=== PATIENT | female | born 1955 | race Caucasian/White ===

== ENCOUNTER 2023-11-12 15:49 | Inpatient (IN) | payer OTHER, SELFPAY ==
[2023-11-12] VITALS (41 sets, daily range): BP systolic 106–170; BP diastolic 61–105
[2023-11-12 15:12] LABS: Glucose - Point of Care 201 mg/dl (70-99)
--- NOTE | 2023-11-12 15:12 | ED.GENMED ---
History of Present Illness
General
Chief Complaint: Weakness
Source: patient and ambulance crew
Exam Limitations: none
Time Seen by Provider: 11/12/23 15:08
History of Present Illness
History of Present Illness:
See MDM
If applicable-neuro sx onset
Onset of symptoms known: Yes
Date of onset of symptoms: 11/12/23
Past History
Past History
ED Past Medical History: Asthma, HTN, NIDDM and Other (Diabetes, chronic pain from degenerative disease in her back, has pain medication at home, hypertension)
ED Past Surgical History: and Gynecological
Social History
Tobacco: Smoker
Alcohol: None
Drug: Marijuana (vape)
Living: with roommate
Family History
Family History: Other (Mother with Alzheimer's)
Phy Exam
Physical Exam
Physical Exam:
See MDM
Scores
NIH Stroke Score
Level of Consciousness: 0 - Alert
LOC Questions: 0-Answers both correctly
LOC Commands: 0-Performs both correctly
Best Horizontal Gaze: 0-Normal
Visual Concepcion: 0=Normal, no visual loss
Facial Palsy: 0=Normal, symmetrical
Motor - Right Arm: 0=No drift 10 seconds
Motor - Left Arm: 0=No drift 10 seconds
Motor - Right Le-No drift 5 seconds
Motor - Left Le-No drift 5 seconds
Limb Ataxia: 0-Absent
Sensation: 2-Severe loss
Best Language: 1-Mild aphasia
Dysarthria: 0-Normal
Extinction and Inattention: 0-No abnormality
Total Score:: 3
MRS Score
Modified Alva Scale (mRS): No significant disability. Able to carry out usual activities.
Score: 1
Course
Orders/Labs/Results
Orders:
Orders
11/12/23 15:08
Electrocardiogram (*1) Stat
Reason for Study: Other
Other Reason for Exam: neuro symptoms
CT Head & Neck Angio W/wo IV Urgent
Comment:
Reason For Exam: Expressive aphasia
NEUROLOGY CONSULT Urgent
Consulting Provider: Sidra Stevenson
Was physician already notified: Yes
Bedside Glucose- Treatment ONCE
Cardiac Monitoring- Treatment ONCE
EKG- Treatment ONCE
11/12/23 15:09
CT Head W/o Cont STROKE ALERT Stat
Comment:
Reason For Exam: weakness
11/12/23 15:12
Complete Blood Count/With Diff Urgent
Comprehensive Metabolic Panel Urgent
PTT Urgent
Prothrombin Time Urgent
Troponin I Urgent
11/12/23 15:18
Tenecteplase [Tnkase] 21 mg Syringe [Syringe Non-Pump] 0 ml IV NOW
Provider explained risk/benefits to patient &/or caregiver?: Yes
11/12/23 15:28
Admit/Transfer Patient As Directed
Co-Sign Provider:
Level of Care: Inpatient admission
Assign to:: ICU
Physician / Group: Carmelina
Diagnosis: Acute stroke
Reason for Hospitalization: stroke
Expected length of stay greater than two midnights?: Yes
ELOS- Estimated Length of Stay in days: 3
I certify the patient meets the requirements for IP care: Yes
11/12/23 15:29
Code Status As Directed
Resuscitation Status: Full Code
Abnormal Lab Results
11/12/23 11/12/23
15:09 15:12
Abs Immat Gran (auto) 0.1 H 10^3/uL
(0-0.05)
Absolute Neuts (auto) 7.3 H 10^3/uL
(1.4-6.5)
Absolute Monos (auto) 0.7 H 10^3/uL
(0.1-0.6)
BUN 42 H mg/dl
(7-17)
Creatinine 1.3 H mg/dL
(0.6-1.0)
Glucose 150 H mg/dl
(70-99)
AST 38 H U/L
(14-36)
Total Protein 9.0 H g/dl
(6.3-8.2)
Albumin 5.3 H g/dl
(3.5-5.0)
POC Glucose 201 H mg/dl
(70-99)
11/12/23 15:12
11/12/23 15:12
Vital Signs
Initial and Last Documented VS:
Initial Vital Signs
Temp Pulse Resp BP Pulse Ox
99.0 F 99 18 151/71 98
11/12/23 15:31 11/12/23 15:31 11/12/23 15:31 11/12/23 15:31 11/12/23 15:31
Last Documented Vital Signs
Temp Pulse Resp BP Pulse Ox
99.0 F 81 12 151/71 98
11/12/23 15:31 11/12/23 15:40 11/12/23 15:40 11/12/23 15:40 11/12/23 15:31
MDM/Problems Addressed
Differential Diagnosis Includes:
HPI and MDM Narrative:
68-year-old female presenting with expressive aphasia and tingling of her right arm. This occurred around 2 PM today. Patient believes symptoms are improving somewhat but she still has expressive aphasia and has significant sensory loss to right
arm. Prearrival stroke alert called by EMS. On arrival, patient was quickly evaluated by myself and neurology and sent to CT scanner.
Physical exam
General: Well appearing and non-toxic
HEENT: protecting airway. Pupils equal reactive. EOMI
Neck: appears supple
CV: No evidence of cyanosis
Resp: No accessory muscle use
Abd: Non-distended
Extremities: No deformities
Neuro: alert. Significant sensory deficit to right arm. Muscle strength intact all 4 extremities. Mild expressive aphasia
Psych: Normal affect
Skin: Intact
Problems Addressed including Acute and Chronic Conditions affecting care:
1. Strokelike symptoms
Acuity: acute
Prognosis: unstable
Details: Given the expressive aphasia and unilateral arm tingling, stroke alert called and patient sent immediately to CT scanner
Updates
3:15 PM Neurology spoke to patient and the onset of timing may be closer to 1 PM. Regardless, patient still in the TNK timeframe. Neurology will order TNK.
Radiology discussed no acute findings on Noncon CT
Differential Diagnosis (but not limited to): Brain mass, ischemic stroke, hemorrhagic stroke
Testing considered: CT perfusion
Drug therapy (if applicable): OTC meds, please see d/c instruction regarding Rx drugs
Amount and/or Complexity of Data Reviewed
Clinical info obtained from: Patient
External data reviewed: N/A
Labs I independently reviewed (but not limited to): Platelets within normal limits
Radiology: The CT scan was personally and independently reviewed. In addition, official CT report reviewed.
Pulse Ox: not hypoxic
EKG independently reviewed: Sinus rhythm, normal axis, no STEMI
Hydro Sprayer Operator: Sinus rhythm
Critical Care: The high probability of a clinically significant, sudden or life threatening deterioration of the neurovascular system(s) required my full and direct attention, intervention and personal management. The aggregate critical care time
was 33 minutes. This time is in addition to time spent performing reported procedures but includes the following:
[x] Data Review and interpretation
[x] Patient assessment and monitoring of vital signs
[x] Documentation
[x] Medication orders and management
Risk of Complication:
Social Determinants of health: Good social support
Discussed with other providers: Neurologist, radiologist, hospitalist
Escalation of Care includes Admit/Obs: Given the concern for ischemic stroke, patient given TNK and will admit to the ICU
Occasional wrong word or 'sound a like' substitutions may have occurred due to the inherent limitations of voice recognition software. Read the chart carefully and recognize, using context, where substitutions have occurred.
*Critical Care Note
Total Time (30-74mins, 75-104mins- exclusive of procedures): 33 min
ED Attending Note
-
Portions of this chart may have been created with voice recognition software.� Occasional wrong word or��sound alike� substitutions may have occurred due to the inherent limitations of voice recognition software.
Discharge Plan
Departure
Patient Disposition: Admit
Date of Disposition: 11/12/23
Time of Disposition: 15:40
Admit to: ICU
Presentation/result/management discussed w/ accepting MD/DO: Hospitalist
Discharge Problem:
Acute CVA (cerebrovascular accident)
Interventions
Interventions:
*Risk Screen - Suicide Last Done: 11/12/23 15:49
*General Assessment Last Done: 11/12/23 15:49
*Neglect/Abuse Screening Last Done: 11/12/23 15:49
*ED COVID-19 Vaccine History Last Done: 11/12/23 15:33
--- NOTE | 2023-11-12 15:17 | CON.NEURO ---
Consultation
Order
Date of Consultation: 11/12/23
Requesting Provider:
Reason for Consult: Stroke alert
CC:
HPI: This is a 69-year-old right-handed woman who presented to [facility] on November 12, 2023 with language dysfunction. According to the patient she developed expressive difficulties around 1:00 today. No reports of headache, fever
motor, sensory or visual deficits, history of seizures or similar episodes in the
ER VS: 151/71, 99, 37.2C
PDMP:Hydrocodone-Acetamin 10-325 Mg 150 tabs Morphine Sulf Er 15 Mg�60 tabs filled in on 10/17/2023.
Labs:Pl 281
CT head-moderate periventricular hypodensities left insular cortex calcification.
CTA head/neck-neck no significant intra or extra cranial stenosis or dissection.
PMH: LS DJD, HTN, nicotine addiction; chronic lower back pain,
PSH: , bilateral cataract surgery
SH: Active smoker, admits to recreational marijuana use, independent in ADL
FH: No family history of stroke
All:NKDA
ROS: Positive for expressive aphasia.
General: Well developed. In no acute distress.
Cardio: Regular rate and rhythm without murmur. Extremities are without cyanosis or edema.
Neuro:
Mental Status: Alert, follows simple requests. Moderate expressive aphasia
Cranial Nerves: . Pupils are equally round and reactive to light. EOMs full. Visual lorenzana full to confrontation. No ptosis. No nystagmus. Face symmetric. Normal hearing AU. The palate elevated well. SCMs and traps 5/5. Tongue midline. No
dysarthria.
Motor: Normal bulk and tone. No pronator or arm drift. Strength 5/5 throughout. No clonus.
Coordination: No dysmetria
Gait: deferred
Assessment and Plan:
I Acute L MCA territory syndrome.
II. Nicotine addiction
III. HTN
-Admit to ICU;
-STAT IV Tenecteplase 25 mg/kg once. TNK has similar efficacy and safety outcomes compared with alteplase including rates of excellent functional outcome, symptomatic intracerebral hemorrhage, and mortality at 90 days.
-Neuro checks while in the ED - Q15 minutes.
-Maintain euvolemia using 0.9% NaCl.
-Strictly follow I�s & O�s.
-Avoid antihypertensive medications unless MAP is persistently higher than 130
-Treat persistently elevated MAP>130 with IV Labetalol.
-NPO, especially if the level of arousal is depressed.
-NGT after the 2nd day for nutrition and meds if dysarthria or dysphagia present;
-Maintain elevation of HOB 30-45 degrees.
- Utilize a pneumatic compression device for DVT prophylaxis.
- For anticoagulation-related hemorrhage: aggressive reversal using FFP
-No antiplatelet agents nor anticoagulants, including heparin, low molecular weight heparin, heparinoids, warfarin, ASA and other antiplatelet agents, and NSAIDs;
-Monitoring of vital signs and neurologic status should be performed every hour.
-For any worsening of neurologic condition:
a. STAT head CT
b. STAT neurologic consult for evaluation
c. STAT Neurosurgical consult for evaluation
-MRI brain wo chana
-TTE
-The case was discussed with patient's daughter
-SCD/TEDs;
I personally reviewed all radiology and labs along with past medical records pertinent to current medical problems. Total time spent in patient care is 60 minutes.
Thank you for allowing us to participate in the care of this patient. We will continue to follow. Please do not hesitate to contact us with any questions or concerns.
Subjective/Objective
Subjective Data
Date of Service: November 12, 2023
Objective Data
Patient Allergies
No Known Allergies Allergy (Verified 03/24/23 08:31)
Medications
-
Home Medications
Medication Instructions Recorded
acetaminophen 325 mg tablet 650 mg PO Q4HWA #120 tabs 08/24/20
alprazolam 0.5 mg tablet 0.5 mg PO BID #15 tabs 08/24/20
aspirin 325 mg tablet 325 mg PO DAILY #30 tabs 08/24/20
docusate sodium 100 mg capsule 100 mg PO BID #60 caps 08/24/20
ergocalciferol (vitamin D2) 1,250 50,000 units PO Q7D #4 caps 08/24/20
mcg (50,000 unit) capsule
gabapentin 300 mg capsule 900 mg PO HS #30 caps 08/24/20
lidocaine 4 % topical patch 3 patch topical DAILY #60 patches 08/24/20
(Aspercreme (lidocaine))
metformin 500 mg tablet,extended 500 mg PO HS #30 tabs 08/24/20
release 24 hr
nicotine 14 mg/24 hr daily 14 mg transdermal DAILY #30 patches 08/24/20
transdermal patch
oxycodone 15 mg tablet 15 mg PO Q4HPRN PRN pain #40 tabs 08/24/20
sennosides 8.6 mg tablet (senna) 2 tab PO BID #60 tabs 08/24/20
sertraline 25 mg tablet 25 mg PO DAILY #30 tabs 08/24/20
bumetanide 1 mg tablet 1 mg PO BID #60 tabs 08/25/20
methylprednisolone 4 mg tablets in 4 mg PO DAILY #21 ea 12/05/22
a dose pack (Medrol (Justus))
Vital Signs and Labs
-
Vital Signs and Labs:
Vital Signs
Temp Pulse Resp BP Pulse Ox
37.2 C 86 8 133/66 94
11/12/23 15:31 11/12/23 16:10 11/12/23 16:10 11/12/23 16:10 11/12/23 15:55
Lab Results
11/12/23 15:55
11/12/23 15:55
PT 13.2 Sec (11.4-14.6) 11/12/23 15:12
INR 1.01 11/12/23 15:12
APTT 33.1 Sec (23.4-35.0) 11/12/23 15:12
Sodium 133 mmol/L (135-145) L 11/12/23 15:55
Potassium 4.1 mmol/L (3.5-5.1) 11/12/23 15:55
BUN 44 mg/dl (7-17) H 11/12/23 15:55
Glucose 141 mg/dl (70-99) H 11/12/23 15:55
Calcium 9.2 mg/dl (8.4-10.2) 11/12/23 15:55
Home Medications
-
Home Medications
alprazolam 0.5 mg tablet 0.5 mg PO Q6H PRN anxiety 11/12/23
duloxetine 60 mg capsule,delayed release 60 mg PO BID depression/pain 11/12/23
gabapentin 400 mg capsule 400 mg PO QID pain/neuropathy 11/12/23
hydrocodone 10 mg-acetaminophen 325 mg tablet 1 tab PO Q4H PRN moderate pain 11/12/23
metformin 500 mg tablet,extended release 24 hr 500 mg PO BID diabetes 11/12/23
morphine 15 mg tablet,extended release 15 mg PO Q12H PRN severe pain 11/12/23
[2023-11-12 15:29] LABS: % Basophils 0.6 % (0-2); % Eosinophils 1.5 % (0-6); % Immature Granulocytes 0.5 % (0-0.5); % Lymphocytes 22.8 % (20.5-51.1); % Monocytes 6.8 % (1.7-9.3); % Neutrophils 67.8 % (42.2-75.2); Absolute Basophils 0.1 10^3/uL (0-0.2); Absolute Eosinophils 0.2 10^3/uL (0-0.7); Absolute Immature Granulocytes 0.1 10^3/uL (0-0.05); Absolute Lymphocytes 2.4 10^3/uL (1.2-3.4); Absolute Monocytes 0.7 10^3/uL (0.1-0.6); Absolute Neutrophils 7.3 10^3/uL (1.4-6.5); Hemoglobin 14.5 g/dL (12.0-16.0); Mean Corp Hgb Conc. 33.7 g/dL (33.0-37.0); Mean Corpuscular Hgb 28.5 pg (27.0-31.0); Mean Corpuscular Volume 84.6 fL (81.0-99.0); Mean Platelet Volume 9.5 fL (7.4-10.4); Nucleated Red Blood Cells % 0 %; Platelet Count 326 10^3/uL (130-400); Red Blood Cell Count 5.08 10^6/uL (4.20-5.40); Red Cell Dist. Width 13.2 % (11.5-14.5); White Blood Cell Count 10.7 10^3/uL (4.8-10.8)
--- NOTE | 2023-11-12 15:30 | CON.INTV ---
Consultation
Consultation Request
Date/Time Consultation Requested: 11/12/2023-3:30 PM
Date/Time Consultation Performed: 11/12/2023-3:45 PM
Requesting Provider: Hospitalist
Performing Provider: Dr. Scott
Reason for Consultation: Status post TNK
Medical History
-
Chief Complaint: CVA
History of Present Illness:
68-year-old female smoker and marijuana vaper with a history of hypertension, asthma, diabetes, chronic pain presented with weakness and expressive aphasia with tingling in right arm felt to have CVA and received TNK-torch straightener consulted for post
TNK/critical care management 11/12/2023. Patient is seen up in the ICU. Patient is alert and oriented. Continues to complain of some expressive aphasia but no weakness, dysphagia, visual or sensory abnormalities. She denies any shortness of
breath, chest pain, chest tightness, wheezing, mucus, abdominal pain, nausea or leg swelling. She continues to smoke a pack of cigarettes daily. She continues to vape marijuana.
Past Medical History
Past Medical History: None (Hypertension-multidrug. Asthma. Diabetes with neuropathy. Smoker. Chronic pain. Vitamin D deficiency. Orthopedic surgery-right femur fracture. Cataract.)
Social History
Tobacco: Smoker ( 1 to 2 packs a day)
Drug: Marijuana (vape)
Personal: Partner
Living: With Family
Occupational Exposures: No known asbestos exposure
Environmental Exposures: No known tuberculosis exposure
Family History
Family History: Other (Mother-dementia.)
Allergies / Home Medications
Allergies
Allergy/AdvReac Type Severity Reaction Status Date / Time
No Known Allergies Allergy Verified 03/24/23 08:31
Home Medications
Medication Instructions Recorded Confirmed Last Taken Type
acetaminophen 325 mg tablet 650 mg PO Q4HWA #120 tabs 08/24/20 Unknown Rx
alprazolam 0.5 mg tablet 0.5 mg PO BID #15 tabs 08/24/20 Unknown Rx
aspirin 325 mg tablet 325 mg PO DAILY #30 tabs 08/24/20 Unknown Rx
docusate sodium 100 mg capsule 100 mg PO BID #60 caps 08/24/20 Unknown Rx
ergocalciferol (vitamin D2) 1,250 50,000 units PO Q7D #4 caps 08/24/20 Unknown Rx
mcg (50,000 unit) capsule
gabapentin 300 mg capsule 900 mg PO HS #30 caps 08/24/20 Unknown Rx
lidocaine 4 % topical patch 3 patch topical DAILY #60 patches 08/24/20 Unknown Rx
(Aspercreme (lidocaine))
metformin 500 mg tablet,extended 500 mg PO HS #30 tabs 08/24/20 Unknown Rx
release 24 hr
nicotine 14 mg/24 hr daily 14 mg transdermal DAILY #30 patches 08/24/20 Unknown Rx
transdermal patch
oxycodone 15 mg tablet 15 mg PO Q4HPRN PRN pain #40 tabs 08/24/20 Unknown Rx
sennosides 8.6 mg tablet (senna) 2 tab PO BID #60 tabs 08/24/20 Unknown Rx
sertraline 25 mg tablet 25 mg PO DAILY #30 tabs 08/24/20 Unknown Rx
bumetanide 1 mg tablet 1 mg PO BID #60 tabs 08/25/20 Unknown Rx
methylprednisolone 4 mg tablets in 4 mg PO DAILY #21 ea 12/05/22 Unknown Rx
a dose pack (Medrol (Justus))
Review of Systems
-
Unable to Obtain full review of systems at this time due to: Other (Per HPI)
Vitals / Labs / Diagnostic Testing
Diagnostic Testing:
Physical Exam
-
Exam:
Well-nourished and well-developed in no apparent distress
HEENT-atraumatic, normocephalic
Neck-supple, no JVD, no bruit
Heart-regular rate and rhythm-no murmurs, rubs or gallops
Chest-clear to auscultation, no wheezes, crackles
Back-no tenderness
Abdomen-soft, nontender, nondistended, no hepatosplenomegaly
Extremities-no cyanosis, clubbing, edema and good peripheral pulses
Integument-intact, no rashes, lesions or ecchymosis
Neurology-alert and oriented, nonfocal motor and sensory exam
Assessment
-
68-year-old female smoker and marijuana vaper with a history of hypertension, asthma, diabetes, chronic pain presented with weakness and expressive aphasia with tingling in right arm felt to have CVA and received TNK-torch straightener consulted for post
TNK/critical care management 11/12/2023.
Assessment
Acute CVA-expressive aphasia
status post TNK
MAURICIO
Hyperglycemia
Obesity-BMI 30
Conditions present prior to admission:
Hypertension-multidrug.
Asthma.
Diabetes with neuropathy.
Smoker.
Chronic pain.
Vitamin D deficiency.
Orthopedic surgery-right femur fracture. Cataract. .
Plan
Admit patient to medical intensive care unit
Supplemental oxygen to maintain saturation greater than 92%
Aspiration precautions
Neurology evaluation
Monitor blood pressure closely-goal SBP < 180, DBP < 105
Neuro checks per protocol
Check CT head
MRI head/MRA head and neck in next 24 hours
Hold antiplatelet therapy �24 hours
Check lipid panel
Check echocardiogram
Check A1c
Carotid circulation evaluation
Atorvostatin 80 mg daily if tolerated
Monitor blood sugar-insulin as needed-goal blood sugar 140-180
DVT prophylaxis-sequential for 24 hours and then Lovenox
Speech therapy/occupational therapy/physical therapy evaluation
Smoking cessation counseling ongoing.
Screen for sleep apnea-denies snoring, feels refreshed in the morning does not complain of daytime somnolence
Critical care statement: A total of 50 minutes of critical care time was provided for this patient today. This includes management of unstable vital signs, evaluation of the patient at bedside, reviewing the patient's pertinent medical records
including radiographs, microbiology, laboratory evaluations, and discussion with primary team, consultants, pharmacy, nutrition, physical therapy, case management, charge nurse, critical care nursing, and respiratory therapy.
Diagnostic data:
Chest x-ray 03/26/2021-abnormal
CT head 11/12/23-3 mm focus of dystrophic calcification within the posterior left insular cortex, no evidence for acute intracranial abnormalities
CT head neck angiogram 11/12/2023-moderate bilateral calcific atherosclerotic disease in the proximal internal carotid arteries, normal appearance of the vertebral and basilar arteries, bilobed nodule arising from the thyroid isthmus
Data Reviewed
-
EKG: Report reviewed by me
Radiology: Report reviewed by me
CT Scan: Report reviewed by me
Medical Tests (Nuc Med, Echo etc): Report reviewed by me
Labs: Labs reviewed by me
Old Records: Reviewed
Critical Care Time (in minutes): 50
--- NOTE | 2023-11-12 15:37 | HPS.HSE ---
Family Physician
-
Family Physician:
Chief Complaint
-
Expressive aphasia, right arm tingling
History of Present Illness
68 with acute onset of expressive aphasia and right-sided paresthesias around 1 to 2 PM.
Stroke alert called and neurology at bedside in the emergency room. Decision made to administer thrombolysis.
Medical History
Past Medical History
Past Medical History: Reports Other
Additional Past Medical History:
Essential hypertension
DM2
Diabetic peripheral neuropathy
Mild intermittent asthma
Chronic pain syndrome
Chronic opiate dependence
Mixed hyperlipidemia
Major depression
Anxiety disorder
Osteoporosis
Past Surgical History: Reports Gynocological and Orthopedic
Social History
Tobacco: Smoker
Alcohol: None
Drug: Marijuana
Family History
Family History: Not pertinent
Allergies / Home Medications
Allergies reflects when Allergies were last updated in [facility].
Home Medications with original date entered in [facility]
Allergy/Medication List:
Allergies
Allergy/AdvReac Type Severity Reaction Status Date / Time
No Known Allergies Allergy Verified 03/24/23 08:31
Home Medications
bumetanide 1 mg tablet 1 mg PO BID #60 tabs 08/25/20
alprazolam 0.5 mg tablet 0.5 mg PO Q6H PRN anxiety 11/12/23
duloxetine 60 mg capsule,delayed release 60 mg PO BID 11/12/23
gabapentin 400 mg capsule 400 mg PO QID 11/12/23
hydrocodone 10 mg-acetaminophen 325 mg tablet 1 tab PO Q4H PRN moderate pain 11/12/23
metformin 500 mg tablet,extended release 24 hr 500 mg PO BID 11/12/23
morphine 15 mg tablet,extended release 15 mg PO Q12H PRN severe pain 11/12/23
Review of Systems
-
History Source: Patient
A 12 point ROS was completed and negative except as noted: Yes
Neurological: Reports Headache and Numbness (Right arm, expressive aphasia)
Physical Exam
Vital Signs
Vital Signs
Temp Pulse Resp BP Pulse Ox
99.0 F 99 18 151/71 98
11/12/23 15:31 11/12/23 15:31 11/12/23 15:31 11/12/23 15:31 11/12/23 15:31
Physical Exam
General: Well Developed, Well Nourished, No Apparent Distress and Comfortable
HEENT: NormoCephalic and Anicteric
Respiratory: Clear
Cardiac: S1/S2 and Regular Rhythm
Breast: Deferred by me
GI: Soft, Non Tender and Non Distended
Genito-urinary: Deferred by me
Musculoskeletal: No Clubbing, No Cyanosis and No Edema
Skin: Warm and Dry
Neuro: Awake, Alert, Nonfocal/grossly intact and Other (Expressive aphasia)
Hematologic/Lymphatic: No Lymphadenopathy
Psych: Calm
Laboratory Results
-
11/12/23 15:12
Impression/Plan
-
Acute expressive aphasia -possible stroke. CT head negative. CTA completed, report pending. Neurology consulted for stroke alert. Neurology deciding on thrombolysis. Awaiting platelet count. Admit to ICU. Continue neurologic checks. Brain
MRI tomorrow. Hold antiplatelet agents for 24 hours.
DM2 without hyperglycemia -check hemoglobin A1c. She is on metformin at home. Use low resistance NovoLog scale.
Renal insufficiency -unclear if acute versus chronic. Creatinine 1.3. I checked ECW and I do not see any recent blood work, most recent was from 2019.
Diabetic peripheral neuropathy
Essential hypertension -permissive hypertension for 24 hours. Does not appear to be on antihypertensives at home.
Mild intermittent asthma -stable.
Chronic pain syndrome/chronic opiate dependence -she sees pain management Dr. Heck. She is on scheduled morphine 15 mg every 12 hours, hydrocodone 10/325 every 4 as needed pain.
Tobacco dependence -abstinence is important.
Obesity due to excess calories
Full code
PT/OT/speech consult
Updated family at the bedside. Case discussed with ER attending as well as neurologist.
[2023-11-12] MEDS: TNKASE 4.20000000000000018 MG IV (15:38)
[2023-11-12 15:39] LABS: APTT 33.1 Sec (23.4-35.0); INR 1.01; PT 13.2 Sec (11.4-14.6)
[2023-11-12 15:53] LABS: ALT (SGPT) 33 U/L (0-35); AST (SGOT) 38 U/L (14-36); Albumin 5.3 g/dl (3.5-5.0); Alkaline Phosphatase 107 U/L (38-126); Blood Urea Nitrogen 42 mg/dl (7-17); Calcium 9.6 mg/dl (8.4-10.2); Carbon Dioxide 22 mmol/L (22-30); Chloride 99 mmol/L (98-107); Glucose 150 mg/dl (70-99); Potassium 4.5 mmol/L (3.5-5.1); Sodium 135 mmol/L (135-145); Total Bilirubin 0.8 mg/dl (0.2-1.3); eGFR 44.79
[2023-11-12 16:02] LABS: % Basophils 0.5 % (0-2); % Eosinophils 1.5 % (0-6); % Immature Granulocytes 0.4 % (0-0.5); % Lymphocytes 16.5 % (20.5-51.1); % Monocytes 7.8 % (1.7-9.3); % Neutrophils 73.3 % (42.2-75.2); Absolute Basophils 0.1 10^3/uL (0-0.2); Absolute Eosinophils 0.1 10^3/uL (0-0.7); Absolute Lymphocytes 1.6 10^3/uL (1.2-3.4); Absolute Monocytes 0.8 10^3/uL (0.1-0.6); Absolute Neutrophils 7.1 10^3/uL (1.4-6.5); Hematocrit 36.5 % (37.0-47.0); Hemoglobin 12.7 g/dL (12.0-16.0); Mean Corp Hgb Conc. 34.8 g/dL (33.0-37.0); Mean Corpuscular Hgb 28.7 pg (27.0-31.0); Mean Corpuscular Volume 82.6 fL (81.0-99.0); Mean Platelet Volume 8.8 fL (7.4-10.4); Nucleated Red Blood Cells % 0 %; Platelet Count 281 10^3/uL (130-400); Red Blood Cell Count 4.42 10^6/uL (4.20-5.40); Red Cell Dist. Width 13.2 % (11.5-14.5); White Blood Cell Count 9.6 10^3/uL (4.8-10.8)
[2023-11-12 16:08] LABS: Troponin I 0.102 ng/ml
[2023-11-12 16:19] LABS: ALT (SGPT) 25 U/L (0-35); AST (SGOT) 23 U/L (14-36); Albumin 4.4 g/dl (3.5-5.0); Alkaline Phosphatase 100 U/L (38-126); Blood Urea Nitrogen 44 mg/dl (7-17); Calcium 9.2 mg/dl (8.4-10.2); Carbon Dioxide 27 mmol/L (22-30); Chloride 95 mmol/L (98-107); Glucose 141 mg/dl (70-99); Potassium 4.1 mmol/L (3.5-5.1); Sodium 133 mmol/L (135-145); Total Bilirubin 0.5 mg/dl (0.2-1.3); Total Protein 7.5 g/dl (6.3-8.2); eGFR 44.79
[2023-11-12 17:41] LABS: Glucose - Point of Care 121 mg/dl (70-99)
[2023-11-12] MEDS: NEURONTIN 400 MG PO ×2 (17:46→21:11)
[2023-11-12] MEDS: XANAX 0.5 MG PO (17:46)
[2023-11-12] MEDS: NICODERM TRANSDERMAL 21 MG TRANSDERM (18:36)
--- NOTE | 2023-11-12 18:38 | PTCARENOTE ---
Received pt from ED. NIHSS 3 with visual field losses, right sided sensation loss, and aphasia. Expressive aphasia definite, receptive aphasia mild if present. Pt anxious and agitated. HTN noted. Sinus rhythm. 93% on RA. Able to stand and pivot to
bed and bedside commode. Voided without issue. Xanax given as requested by pt and family. Plan of care discussed. Stroke booklet given.
[2023-11-12] MEDS: MS CONTIN (EXTENDED RELEASE) 15 MG PO (19:38)
[2023-11-12] MEDS: CYMBALTA DELAYED RELEASE 60 MG PO (19:39)
--- NOTE | 2023-11-12 20:00 | PTCARENOTE ---
Received patient in bed, AAOx3, following commands. Expressive aphasia present, decreased sensation on right upper extremity noted, visual field losses present, NIHSS 3. Normal sinus, 70s. Hypertensive, 140s-150s/70s-80s. Palpable radial and pedal
pulses bilaterally, no edema, SCDs on. Normothermic. On 2 liters nasal cannula, saturating 94%. Lung sounds diminished throughout. 200 calorie diabetic diet, ate 80% of dinner. Bedside commode to void. Skin intact. LAC and RFA PIV patent, WNL.
at bedside.
[2023-11-12] MEDS: NORCO 7.5/325 1 TABLET PO (21:10)
[2023-11-12 21:37] LABS: Troponin I 0.086 ng/ml
[2023-11-12 23:59] LABS: Glucose - Point of Care 129 mg/dl (70-99)
[2023-11-13] VITALS (33 sets, daily range): BP systolic 132–157; BP diastolic 61–108
--- NOTE | 2023-11-13 00:09 | PTCARENOTE ---
Patient reports sensation feeling the same on both sides when arms, legs, and cheeks touched. PRN pain medicine given, see MAR. Blood sugar 129. Otherwise patient assessment unchanged from previous.
--- NOTE | 2023-11-13 04:15 | PTCARENOTE ---
Patient assessment unchanged from previous, resting comfortably, call lenz within reach.
[2023-11-13 04:21] LABS: Hematocrit 35.7 % (37.0-47.0); Hemoglobin 12.1 g/dL (12.0-16.0); Mean Corp Hgb Conc. 33.9 g/dL (33.0-37.0); Mean Corpuscular Hgb 28.3 pg (27.0-31.0); Mean Corpuscular Volume 83.6 fL (81.0-99.0); Mean Platelet Volume 8.9 fL (7.4-10.4); Platelet Count 256 10^3/uL (130-400); Red Blood Cell Count 4.27 10^6/uL (4.20-5.40); Red Cell Dist. Width 13.2 % (11.5-14.5); White Blood Cell Count 8.5 10^3/uL (4.8-10.8)
[2023-11-13 04:31] LABS: INR 1.11; PT 14.1 Sec (11.4-14.6)
[2023-11-13 04:32] LABS: APTT 31.9 Sec (23.4-35.0)
[2023-11-13 05:05] LABS: ALT (SGPT) 24 U/L (0-35); AST (SGOT) 26 U/L (14-36); Albumin 3.9 g/dl (3.5-5.0); Alkaline Phosphatase 74 U/L (38-126); Blood Urea Nitrogen 37 mg/dl (7-17); Calcium 8.9 mg/dl (8.4-10.2); Carbon Dioxide 23 mmol/L (22-30); Chloride 104 mmol/L (98-107); Glucose 117 mg/dl (70-99); HDL Cholesterol 49 mg/dl; LDL Cholesterol, Calculated 27 mg/dl; Potassium 4.1 mmol/L (3.5-5.1); Sodium 135 mmol/L (135-145); Total Bilirubin 0.6 mg/dl (0.2-1.3); Total Cholesterol 106 mg/dl (50-199); Total Protein 6.8 g/dl (6.3-8.2); Triglyceride 152 mg/dl (10-149); Very Low Density Lipoprotein 30 mg/dl (0-30); eGFR > 60.00
--- NOTE | 2023-11-13 07:12 | W.PN.INTV ---
Today's Communication / Plan
Recommendations
Continue neurochecks
Brain MRI
PT/OT
If remains stable then transfer out of ICU-call pulmonary if respiratory issues arise
Assessment
-
68-year-old female smoker and marijuana vaper with a history of hypertension, asthma, diabetes, chronic pain presented with weakness and expressive aphasia with tingling in right arm felt to have CVA and received TNK-call worker consulted for post
TNK/critical care management 11/12/2023.
Assessment
Acute CVA-expressive aphasia
status post TNK
MAURICIO
Hyperglycemia
Obesity-BMI 30
Conditions present prior to admission:
Hypertension-multidrug.
Asthma.
Diabetes with neuropathy.
Smoker.
Chronic pain.
Vitamin D deficiency.
Orthopedic surgery-right femur fracture. Cataract. .
Plan
Remains critically ill with neurologic symptoms slowly improving
Continue supplemental oxygen-currently requiring 2 L
Assess discharge supplemental oxygen needs prior to discharge-warned patient she may temporarily need oxygen at home likely doing to smoking induced lung damage
Aspiration precautions
Neurology evaluation ongoing
Monitor blood pressure closely-goal SBP < 180, DBP < 105
Neuro checks per protocol
MRI head/MRA head and neck in next 24 hours
Hold antiplatelet therapy �24 hours
Check lipid panel
Check echocardiogram
Carotid circulation evaluation
Recommend Atorvostatin 80 mg daily if tolerated
Monitor blood sugar-insulin as needed-goal blood sugar 140-180
DVT prophylaxis-sequential for 24 hours and then Lovenox
Speech therapy/occupational therapy/physical therapy evaluation
Smoking cessation counseling ongoing.
Screen for sleep apnea-denies snoring, feels refreshed in the morning does not complain of daytime somnolence
If neurologically stable after MRI and 24 hours after tPA administration the patient could be downgraded out of ICU-call worker will sign off-call pulmonary with respiratory issues
Dr. Scott reviewed case with sister at bedside and during multidisciplinary rounds 11/13/2023
Recommend outpatient pulmonary at [id number] instructions
Critical care statement: A total of 38 minutes of critical care time was provided for this patient today. This includes management of unstable vital signs, evaluation of the patient at bedside, reviewing the patient's pertinent medical records
including radiographs, microbiology, laboratory evaluations, and discussion with primary team, consultants, pharmacy, nutrition, physical therapy, case management, charge nurse, critical care nursing, and respiratory therapy.
Diagnostic data:
Chest x-ray 03/26/2021-abnormal
CT head 11/12/23-3 mm focus of dystrophic calcification within the posterior left insular cortex, no evidence for acute intracranial abnormalities
CT head neck angiogram 11/12/2023-moderate bilateral calcific atherosclerotic disease in the proximal internal carotid arteries, normal appearance of the vertebral and basilar arteries, bilobed nodule arising from the thyroid isthmus
Subjective Dataa
Subjective Data
Date of Service:
Date of Service: November 13, 2023
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
Subjective:
Feels better, still with some expressive aphasia, sensory tingling and weakness improved, visual lorenzana improved, no shortness of breath, but, remains on supplemental oxygen-not on home oxygen, no abdominal pain
Review of Systems
General: Other (Per HPI)
Objective Data
Data Reviewed
Vital Signs / I&O / Oxygen:
Vital Signs
Temp Pulse Resp BP Pulse Ox
98.6 F 75 12 157/74 96
11/13/23 04:15 11/13/23 06:31 11/13/23 06:31 11/13/23 06:31 11/13/23 06:15
Intake and Output
11/12/23 11/13/23 11/14/23
06:59 06:59 06:59
Output Total 500 / 500
Balance -500 / -500
SaO2 96
Nasal Cannula flow liters per 2
minute
Physical Exam
General: Respiratory Distress (n) and Comfortable
HEENT: Normocephalic, Anicteric and Moist Mucous Membranes
Cardiovascular: Regular Rhythm
Respiratory: Crackles (Rare basilar), Rhonchi (n), Non-Labored Respirations, Accessory Resp Muscle Use (n) and Stridor (n)
GI: Soft, Non Distended and Non Tender
Neurology: Awake, Alert and No Motor Deficits
Skin: Warm, Good Color, Cyanosis (n), Jaundice (n) and Rash (n)
Labs/Micro/Reports
Lab Data
11/13/23 04:12
11/13/23 04:12
Laboratory Results
11/12/23 11/13/23
15:12 04:12
PT 13.2 14.1
INR 1.01 1.11
APTT 33.1 31.9
[2023-11-13] MEDS: CYMBALTA DELAYED RELEASE 60 MG PO ×2 (07:17→20:29)
[2023-11-13] MEDS: MS CONTIN (EXTENDED RELEASE) 15 MG PO ×2 (07:17→20:28)
[2023-11-13] MEDS: NICODERM TRANSDERMAL 21 MG TRANSDERM (07:17)
[2023-11-13] MEDS: NEURONTIN 400 MG PO ×4 (07:17→20:29)
--- NOTE | 2023-11-13 08:05 | W.PN.HOSP.TC ---
Today's Communication/Plan
-
Brain MRI
PT/OT
Assessment / Plan
Assessment / Plan
Gen-AAOx3, NAD
HEENT-NC, AT, anicteric, clear oral mm
Neck-supple
CV-reg, no M, +S1/S2
Lungs-clear B/L
Abd-soft, NT, ND
Ext-no edema
Musculoskeletal-no cyanosis, clubbing
Skin-warm and dry
Neuro-grossly non-focal, expressive aphasia
Psych-calm, cooperative
Acute stroke -with expressive aphasia. Await brain MRI today. Neurology following. Treated with tenecteplase on admission.
Await PT/OT.
LDL 27, total cholesterol 106, HDL 49.
DM2 without hyperglycemia -check hemoglobin A1c.� She is on metformin at home.� Use low resistance NovoLog scale. Glucose 117 this morning.
Acute hypoxic respiratory insufficiency -pulse ox noted to be in the mid 80% range at rest on room air by nursing. May have underlying chronic lung disease such as COPD from tobacco use. Assess need for home oxygen prior to discharge. Follow-up
with pulmonary.
MAURICIO -improved.� Etiology unclear.
Troponin elevation -likely acute nonischemic myocardial injury related to acute stroke. Troponin trended down.
Diabetic peripheral neuropathy
Essential hypertension -permissive hypertension for 24 hours.� Does not appear to be on antihypertensives at home.
Mild intermittent asthma -stable.
Chronic pain syndrome/chronic opiate dependence -she sees pain management Dr. Heck.� She is on scheduled morphine 15 mg every 12 hours, hydrocodone 10/325 every 4 as needed pain.
Tobacco dependence -abstinence is important. Nicotine patch ordered.
Obesity due to excess calories
Full code
Sister updated.
Anticipated Discharge: Within 24 hours
Subjective/Interval History
-
Date of Service: November 13, 2023
Patient seen and examined. Still with expressive aphasia. No complaints.
Objective Data
-
Labs:
Laboratory Results
11/13/23
04:12
WBC 8.5
Hgb 12.1
Hct 35.7 L
Plt Count 256
PT 14.1
INR 1.11
APTT 31.9
Sodium 135
Potassium 4.1
Chloride 104
Carbon Dioxide 23
BUN 37 H
Creatinine 0.8
Glucose 117 H
Calcium 8.9
Total Bilirubin 0.6
AST 26
ALT 24
Alkaline Phosphatase 74
Vital Signs:
Vital Signs
Temp Pulse Resp BP Pulse Ox
97.9 F 74 14 139/62 85
11/13/23 07:18 11/13/23 07:45 11/13/23 07:45 11/13/23 07:30 11/13/23 07:58
I&O
11/12/23 11/13/23 11/14/23
06:59 06:59 06:59
Output Total 500 / 500
Balance -500 / -500
Review of Systems
-
History Source: Patient
All other systems: Reviewed and negative
[2023-11-13 08:11] LABS: Glucose - Point of Care 145 mg/dl (70-99)
--- NOTE | 2023-11-13 08:49 | PTCARENOTE ---
Received patient in bed, AAOx3, following commands. Expressive aphasia present, decreased sensation on right upper extremity noted, visual field losses present, NIHSS 3. Normal sinus, 70s. Hypertensive, 140s-150s/70s-80s. Palpable radial and pedal
pulses bilaterally, no edema, SCDs refused. Normothermic. Pt previously removed O2 and SpO2 85% asleep. 90% while awake. 3L applied with SpO2 95%. Lung sounds diminished throughout. 1999 calorie diabetic diet. OOB to BR without issue. Skin intact.
LAC and RFA PIV patent, WNL. Sister at bedside.
[2023-11-13 09:49] LABS: Glycohemoglobin (HgbA1c) 7.3 % (4.0-5.6)
[2023-11-13] MEDS: XANAX 0.5 MG PO ×2 (10:33→16:24)
--- NOTE | 2023-11-13 10:33 | PTOTSP ---
Speech Therapy Assessment
Expressive aphasia characterized by reduced length and complexity of utterances, telegraphic speech, and word finding difficulty. Communication is fragmentary with examiner carrying significant burden especially in during testing/confrontation
tasks. Patient with more fluency and ability to get ideas across in conversation.
Yes/No responses not accurate given tendency to perseverate on response.
Patient highly frustrated and requested examination to stop. Will return at another time.
1. ST will continue in acute care.
2. Patient will likely require at the very least comprehensive language assessment in next level of care.
3. Swallowing deemed within functional limits and to remain on regular solids and thin liquids.
--- NOTE | 2023-11-13 10:42 | W.PN.NEURO.1 ---
Today's Communication / Plan
-
.
Subjective/Objective
Subjective Data
Date of Service: November 13, 2023
Ms. Flynn continues to have expressive aphasia. No reports of headaches, change in vision, strength or sensation.
Brain MRI�pending
Hemoglobin A1c�7.3, LDL�27
PMH: LS DJD, HTN, nicotine addiction; chronic lower back pain,
PSH: , bilateral cataract surgery
SH: Active smoker, admits to recreational marijuana use, independent in ADL
FH: No family history of stroke
All:NKDA
ROS: Limited due to expressive aphasia.
�
�
General: Well developed. In no acute distress.
Cardio: Regular rate and rhythm without murmur. Extremities are without cyanosis or edema.
Neuro:
Mental Status: Alert, follows simple requests.� Moderate expressive aphasia
Cranial Nerves: . Pupils are equally round and reactive to light.� EOMs full.� Visual lorenzana full to confrontation.� No ptosis.� No nystagmus. Face symmetric.� Normal hearing AU.� The palate elevated well.� SCMs and traps 5/5.� Tongue midline.� No
dysarthria.
Motor:� � � � Normal bulk and tone.� No pronator or arm drift.� Strength 5/5 throughout. No clonus.
Coordination: No dysmetria
Gait: � � � � � deferred
Assessment and Plan:
�
I Acute L MCA territory syndrome.
II.� Nicotine addiction
III. HTN
-Continue Telemetry monitoring.
-TTE with bubble studies
-Start aspirin 81 mg once a day if no ICH is seen on repeat CT head without contrast in 24 hours from TNK administration
-Continue nicotine patch
-Please check urine tox
-Speech therapy
-SCDs/Teds
�
I personally reviewed all radiology and labs along with past medical records pertinent to current medical problems. Total time spent in patient care is 35 minutes.
�
Thank you for allowing us to participate in the care of this patient. We will continue to follow. Please do not hesitate to contact us with any questions or concerns.
Objective Data
Vital Signs
Temp Pulse Resp BP Pulse Ox
36.6 C 83 29 143/74 92
11/13/23 07:18 11/13/23 09:30 11/13/23 09:30 11/13/23 09:00 11/13/23 09:30
Lab Results
11/13/23 04:12
11/13/23 04:12
PT 14.1 Sec (11.4-14.6) 11/13/23 04:12
INR 1.11 11/13/23 04:12
APTT 31.9 Sec (23.4-35.0) 11/13/23 04:12
Sodium 135 mmol/L (135-145) 11/13/23 04:12
Potassium 4.1 mmol/L (3.5-5.1) 11/13/23 04:12
BUN 37 mg/dl (7-17) H 11/13/23 04:12
Glucose 117 mg/dl (70-99) H 11/13/23 04:12
Calcium 8.9 mg/dl (8.4-10.2) 11/13/23 04:12
LDL Cholesterol, Calc 27 mg/dl 11/13/23 04:12
Patient Allergies
No Known Allergies Allergy (Verified 03/24/23 08:31)
[2023-11-13 11:38] LABS: Amphetamines Negative (Negative); Barbiturates Negative (Negative); Benzodiazepines Positive (Negative); Buprenorphine Negative (Negative); Cocaine Negative (Negative); Methadone Negative (Negative); Methamphetamines Negative (Negative); Opiates Positive (Negative)
[2023-11-13 11:39] LABS: Marijuana Negative (Negative); Phencyclidine Negative (Negative); Tricyclic Antidepressants Negative (Negative)
[2023-11-13 11:42] LABS: Glucose - Point of Care 149 mg/dl (70-99)
[2023-11-13 12:14] LABS: Fentanyl, Urine Negative (Negative)
--- NOTE | 2023-11-13 13:04 | CM ---
CM following re: discharge planning.
Discussed in Rounds, reviewed pt's chart, met with pt and pt's sig other at bedside. Per Rounds meeting, MRI today, PT, OT, ST to evaluate.
Pt is a 68 year old female, admitted with primary dx of Acute CVA-expressive aphasia, status post TNK.
Pt reports she lives with sig other Rich in a 2SH, has supportive daughter. 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 Pt had difficulties to recall her PCP and a pharmacy she is using.
ST recommends skilled services upon the discharge.
PT and OT will evaluate the pt after 24 hours pt received TNK.
Pt reports she has no functional limitations and she feel she will be able to get PT/OT/ST on an outpatient level.
PCP: Quinn Lo
Pharmacy: [facility] pharmacy.
D/C plan: home with most likely outpatient PT/OT/ST. Sig other to transport at discharge.
CM will follow with discharge nette updates as hospitalization progresses
[2023-11-13] MEDS: NORCO 7.5/325 1 TABLET PO ×2 (13:20→17:02)
--- NOTE | 2023-11-13 13:24 | PTCARENOTE ---
Assessment unchanged. Pt premedicated for MRI. Continues to require O2 when resting/asleep in bed. SpO2 without O2 97%. With 2L 95-96%.
[2023-11-13] MEDS: ASPIR LOW (ENTERIC COATED) 81 MG PO (15:23)
[2023-11-13 15:36] LABS: Glucose - Point of Care 117 mg/dl (70-99)
[2023-11-14 05:44] LABS: ALT (SGPT) 22 U/L (0-35); AST (SGOT) 23 U/L (14-36); Albumin 3.9 g/dl (3.5-5.0); Alkaline Phosphatase 72 U/L (38-126); Blood Urea Nitrogen 27 mg/dl (7-17); Calcium 8.9 mg/dl (8.4-10.2); Carbon Dioxide 27 mmol/L (22-30); Chloride 103 mmol/L (98-107); Estimated Creatinine Clearance 79 ml/min; Glucose 116 mg/dl (70-99); Potassium 4.2 mmol/L (3.5-5.1); Sodium 133 mmol/L (135-145); Total Bilirubin 0.6 mg/dl (0.2-1.3); Total Protein 6.7 g/dl (6.3-8.2); eGFR > 60.00
[2023-11-14 05:50] VITALS: BP 122/74
--- NOTE | 2023-11-14 06:13 | PTCARENOTE ---
On RA pt desat to 87% while asleep, placed on 2L NC overnight.
--- NOTE | 2023-11-14 07:43 | W.PN.HOSP.TC ---
Addendum entered and electronically signed by Marquez Cosme DO 11/14/23 13:39:
Recommend outpatient speech therapy. Prescription provided to nurse.
Medically stable for discharge. Discussed with neurology. Will require outpatient follow-up.
Needs outpatient registered nurse cardiac. Discussed with cardiology and they will arrange. Dr Ling.
Updated daughter and significant other on the phone regarding discharge plans for today.
Follow-up with PCP next week. BMP in 1 week.
Original Note:
Today's Communication/Plan
-
PT/OT
TSH, cortisol
Urine studies
Assessment / Plan
Assessment / Plan
Gen-AAOx3, NAD
HEENT-NC, AT, anicteric, clear oral mm
Neck-supple
CV-reg, no M, +S1/S2
Lungs-clear B/L
Abd-soft, NT, ND
Ext-no edema
Musculoskeletal-no cyanosis, clubbing
Skin-warm and dry
Neuro-grossly non-focal, expressive aphasia
Psych-calm, cooperative
Acute stroke -with expressive aphasia. Neurology following. Treated with tenecteplase on admission. MRI confirms moderate to large area of nonhemorrhagic acute to subacute infarct in the left parietal lobe.
Await PT/OT. Speech therapy recommends regular solids and thin liquids with close outpatient follow-up.
LDL 27, total cholesterol 106, HDL 49.
DM2 without hyperglycemia -hemoglobin A1c 7.3%.� She is on metformin at home.� Use low resistance NovoLog scale. Glucose 116 this morning.
Acute hypoxic respiratory insufficiency -pulse ox noted to be in the mid 80% range at rest on room air by nursing. May have underlying chronic lung disease such as COPD from tobacco use. Assess need for home oxygen prior to discharge. Follow-up
with pulmonary.
MAURICIO -improved.� Etiology unclear.
Hyponatremia -sodium 133. Check TSH, cortisol, urine studies.
Troponin elevation -likely acute nonischemic myocardial injury related to acute stroke. Troponin trended down.
Diabetic peripheral neuropathy
Essential hypertension -blood pressure controlled.� Does not appear to be on antihypertensives at home.
Mild intermittent asthma -stable.
Chronic pain syndrome/chronic opiate dependence -she sees pain management Dr. Heck.� She is on scheduled morphine 15 mg every 12 hours, hydrocodone 10/325 every 4 as needed pain.
Tobacco dependence -abstinence is important. Nicotine patch ordered.
Obesity due to excess calories
Full code
Anticipated Discharge: Within 24 hours
Subjective/Interval History
-
Date of Service: November 14, 2023
Patient seen and examined. Still with expressive aphasia. No complaints.
Objective Data
-
Labs:
Laboratory Results
11/14/23
05:09
Sodium 133 L
Potassium 4.2
Chloride 103
Carbon Dioxide 27
BUN 27 H
Creatinine 0.8
Glucose 116 H
Calcium 8.9
Total Bilirubin 0.6
AST 23
ALT 22
Alkaline Phosphatase 72
Vital Signs:
Vital Signs
Temp Pulse Resp BP Pulse Ox
98.0 F 65 20 122/74 94
11/14/23 03:40 11/14/23 06:00 11/14/23 06:00 11/14/23 05:50 11/14/23 06:25
I&O
11/13/23 11/14/23 11/15/23
06:59 06:59 06:59
Output Total 500 / 500
Balance -500 / -500
Review of Systems
-
History Source: Patient
All other systems: Reviewed and negative
[2023-11-14 08:00] VITALS: BP 144/89
[2023-11-14] MEDS: NICODERM TRANSDERMAL 21 MG TRANSDERM (08:01)
[2023-11-14] MEDS: CYMBALTA DELAYED RELEASE 60 MG PO (08:01)
[2023-11-14] MEDS: ASPIR LOW (ENTERIC COATED) 81 MG PO (08:01)
[2023-11-14] MEDS: NEURONTIN 400 MG PO ×2 (08:02→13:42)
[2023-11-14] MEDS: MS CONTIN (EXTENDED RELEASE) 15 MG PO (08:02)
--- NOTE | 2023-11-14 08:34 | PTCARENOTE ---
nih 3 this am- pt oriented to place, not time, Dr. Cosme aware of score. pt angry, yelling and cursing at rn, attempted to redirect and calm patient. pt able to ambulate in room without assistance. vitals stable.
[2023-11-14 09:04] LABS: Cortisol, Random 2.8 ug/dl; TSH 0.42 uIU/ml (0.47-4.68)
[2023-11-14 09:12] VITALS: BP 160/71
[2023-11-14] MEDS: XANAX 0.5 MG PO (09:43)
--- NOTE | 2023-11-14 09:46 | PTOTSP ---
The patient was able to ambulate without difficulty, demonstrating no obvious signs of weakness. Defer to Speech and OT for discharge recommendations; no PT needs identified. Will sign off.
--- NOTE | 2023-11-14 10:23 | PTOTSP ---
Speech Therapy
Met with patient and . Patient remains highly emotional/upset with medical condition and not in state of mind to participate in testing when upon therapist arrival. Patient continues to exhibit a mod-severe nonfluent aphasia. Recommend most
intensive ST allowed given persistent expressive/nonfluent aphasia. Provided patient and with information on BI program as an option if/when OP therapy is recommended.
[2023-11-14 10:57] VITALS: BP 142/87
--- NOTE | 2023-11-14 12:50 | W.PN.NEURO.1 ---
Today's Communication / Plan
-
.
Subjective/Objective
Subjective Data
Date of Service: November 14, 2023
Ms. Flynn states that her expressive language difficulties have improved. No reports of headaches, new neurological symptoms since the admission
Brain MRI�moderate to large acute/subacute left MCA territory infarct.
Transthoracic echo�no evidence of PFO.
LDL-27.
PMH: LS DJD, HTN, nicotine addiction; chronic lower back pain,
PSH: , bilateral cataract surgery
SH: Active smoker, admits to recreational marijuana use, independent in ADL
FH: No family history of stroke
All:NKDA
ROS: Limited due to expressive aphasia.
�
�
General: Well developed. In no acute distress.
Cardio: Regular rate and rhythm without murmur. Extremities are without cyanosis or edema.
Neuro:
Mental Status: Alert, follows simple requests.� Moderate expressive aphasia
Cranial Nerves: . Pupils are equally round and reactive to light.� EOMs full.� Visual lorenzana full to confrontation.� No ptosis.� No nystagmus. Face symmetric.� Normal hearing AU.� The palate elevated well.� SCMs and traps 5/5.� Tongue midline.� No
dysarthria.
Motor:� � � � Normal bulk and tone.� No pronator or arm drift.� Strength 5/5 throughout. No clonus.
Coordination: No dysmetria
Gait: � � � � � deferred
Assessment and Plan:
�
I. Cryptogenic L MCA territory stroke. likely etiology-embolic.
II.� Nicotine addiction
III. HTN
-Continue Telemetry monitoring.
-Start aspirin 81 mg once a day
-Continue nicotine patch
-Cardiology consult�Holter monitoring, ILR
-Speech therapy
-Outpatient neurology follow-up in 2�4 weeks
�
I personally reviewed all radiology and labs along with past medical records pertinent to current medical problems. Total time spent in patient care is 35 minutes.
�
Thank you for allowing us to participate in the care of this patient. Please do not hesitate to contact us with any questions or concerns.
Objective Data
Vital Signs
Temp Pulse Resp BP Pulse Ox
37.0 C 69 9 142/87 95
11/14/23 12:20 11/14/23 12:00 11/14/23 09:12 11/14/23 10:57 11/14/23 12:43
Lab Results
11/13/23 04:12
11/14/23 05:09
PT 14.1 Sec (11.4-14.6) 11/13/23 04:12
INR 1.11 11/13/23 04:12
APTT 31.9 Sec (23.4-35.0) 11/13/23 04:12
Sodium 133 mmol/L (135-145) L 11/14/23 05:09
Potassium 4.2 mmol/L (3.5-5.1) 11/14/23 05:09
BUN 27 mg/dl (7-17) H 11/14/23 05:09
Glucose 116 mg/dl (70-99) H 11/14/23 05:09
Calcium 8.9 mg/dl (8.4-10.2) 11/14/23 05:09
LDL Cholesterol, Calc 27 mg/dl 11/13/23 04:12
Ur Buprenorphine Negative (Negative) 11/13/23 11:14
Patient Allergies
No Known Allergies Allergy (Verified 03/24/23 08:31)
--- NOTE | 2023-11-14 13:44 | W.DS.TRANS ---
DC Summary - Site Auditor
-
Discharge Instructions:
Discharge Diagnosis/Procedures Acute stroke, hyponatremia, acute kidney injury
Diet Low Cholesterol,Low Fat,Diabetic, Carb
Controlled
Activity As tolerated
Driving Restrictions Not until seen by your Dr
Bathing Restrictions None
Blood Work BMP in 1 week with your primary care doctor
Other Services ST
Instructions:
Stand-Alone Forms:
Changes to Home Medications: No
Discharge Medications:
DC Medications w/original date entered in [email or web address]
duloxetine 60 mg capsule,delayed release 60 mg PO BID depression/pain 11/12/23
gabapentin 400 mg capsule 400 mg PO QID pain/neuropathy 11/12/23
hydrocodone 10 mg-acetaminophen 325 mg tablet 1 tab PO Q4H PRN moderate pain 11/12/23
metformin 500 mg tablet,extended release 24 hr 500 mg PO BID diabetes 11/12/23
alprazolam 0.5 mg tablet 0.5 mg PO Q6H PRN anxiety #20 tabs 11/14/23
aspirin 81 mg tablet,delayed release 81 mg PO DAILY #60 tabs 11/14/23
morphine 15 mg tablet,extended release 15 mg PO Q12H #0 tabs 11/14/23
nicotine 21 mg/24 hr daily transdermal patch 21 mg transdermal DAILY #0 ea 11/14/23
Home Medication Changes
Pending Results: No
[2023-11-14 13:49] VITALS: BP 141/79
--- NOTE | 2023-11-14 13:53 | CM ---
CM following re: discharge planning.
Reviewed pt's chart, met with pt and spoke to pt's daughter Kaylee over the phone to update on discharge plan progress.
Discharge order is noted. Pt is aware, expressed her agreement with discharge and she stated her boyfriend will transport her home.
Per PT and PT pt has no skilled needs. OT recommends extensive outpatient ST. pt is aware, expressed her agreement and pt stated she will come to for outpatient ST. is aware to provide a script for outpatient ST.
D/C plan: home with outpatient ST at and family support. Sig other to transport home.
No other discharge needs identified.
--- NOTE | 2023-11-14 13:58 | PTCARENOTE ---
plan of care discussed [facility] pt and dr. spence- dr. spence notified of first degree heart block- no new orders. pt in for cortisol stim test
[2023-11-14 14:03] LABS: Free T4 1.43 ng/dl (0.78-2.19)
[2023-11-14] MEDS: CORTROSYN 0.25 MG IV (14:59)
[2023-11-14] MEDS: NSS (PRESERVATIVE FREE) 1 ML IV (14:59)
[2023-11-14 15:20] LABS: ACTH Stim Cortisol 0 Min 6.9 ug/dl
--- NOTE | 2023-11-14 16:19 | PTCARENOTE ---
cortsyn given as per order- all lab work completed. discharged as pr order. all discharge instructions given to pt and significant other- verbalized undestanding. ivs removed- pressure dressing applied. sent with all belongings. wheel chaired down.
[2023-11-14 16:50] LABS: ACTH Stim Cortisol 30 Min 23.3 ug/dl
[2023-11-14 16:57] LABS: ACTH Stim Cortisol 60 Min 29.9 ug/dl
== END 2023-11-14 16:42 | disposition home or self-care (01) | DRG 62 ==
LOC: ICU 15:49
PROVIDERS: Nurse Practitioner Primary Care; ADMITTING PHYSICIAN Hospitalist; CONSULT PHYSICIAN Internal Medicine Critical Care Medicine; CONSULT PHYSICIAN Psychiatry & Neurology Neurology; EMERGENCY PHYSICIAN Student in an Organized Health Care Education/Training Program; FAMILY PHYSICIAN Family Medicine
PROC: 3E03317 Introduction of Other Thrombolytic into Peripheral Vein, Percutaneous Approach (ICD-10-PCS; 2023-11-12)
DX: I63.412 Cerebral infarction due to embolism of left middle cerebral artery (principal); E87.1 Hypo-osmolality and hyponatremia; F11.20 Opioid dependence, uncomplicated; N17.9 Acute kidney failure, unspecified; I5A Non-ischemic myocardial injury (non-traumatic); F17.210 Nicotine dependence, cigarettes, uncomplicated; E11.42 Type 2 diabetes mellitus with diabetic polyneuropathy; E11.65 Type 2 diabetes mellitus with hyperglycemia; E11.36 Type 2 diabetes mellitus with diabetic cataract; I10 Essential (primary) hypertension; J45.20 Mild intermittent asthma, uncomplicated; G89.4 Chronic pain syndrome; E66.09 Other obesity due to excess calories; Z68.28 Body mass index [BMI] 28.0-28.9, adult; Z68.30 Body mass index [BMI] 30.0-30.9, adult; E55.9 Vitamin D deficiency, unspecified
CPT/HCPCS: 70450; 70496; 70498; 70551; 71045; 80053; 80061; 80306; 80307; 82533; 82962; 83036; 84439; 84443; 84484; 85025; 85027; 85610; 85730; 92523; 93005; 93306; 97163; 97167; 99291; 99406; J3101; Q9967

== ENCOUNTER 2024-02-19 11:12 | Outpatient (RCR) | payer OTHER, SELFPAY | END 2024-02-19 23:59 | disposition home or self-care (01) | LOC: RST 11:12 | PROVIDERS: ATTENDING PHYSICIAN Family Medicine | DX: I63.9 Cerebral infarction, unspecified (principal); I69.320 Aphasia following cerebral infarction | CPT/HCPCS: 92507; 92523 ==

== ENCOUNTER 2024-03-25 16:02 | Outpatient (RCR) | payer OTHER, SELFPAY | END 2024-03-25 23:59 | disposition home or self-care (01) | LOC: ROT 16:02 | PROVIDERS: ATTENDING PHYSICIAN Family Medicine | DX: I63.9 Cerebral infarction, unspecified (principal); Z73.6 Limitation of activities due to disability; I69.320 Aphasia following cerebral infarction | CPT/HCPCS: 92507 ==

== ENCOUNTER 2024-04-23 15:12 | Outpatient (RCR) | payer OTHER, SELFPAY | END 2024-04-23 23:59 | disposition home or self-care (01) | LOC: ROT 15:12 | PROVIDERS: ATTENDING PHYSICIAN Family Medicine | DX: I63.9 Cerebral infarction, unspecified (principal); I69.320 Aphasia following cerebral infarction (principal) | CPT/HCPCS: 92507 ==

== ENCOUNTER 2024-05-19 15:14 | Outpatient (RCR) | payer OTHER, SELFPAY | END 2024-05-19 23:59 | disposition home or self-care (01) | LOC: ROT 15:14 | PROVIDERS: ATTENDING PHYSICIAN Family Medicine | DX: I63.9 Cerebral infarction, unspecified (principal); Z73.6 Limitation of activities due to disability; I69.320 Aphasia following cerebral infarction | CPT/HCPCS: 92507 ==

== ENCOUNTER 2024-06-15 13:00 | Outpatient (RCR) | payer OTHER, SELFPAY | END 2024-06-15 23:59 | disposition home or self-care (01) | LOC: RPT 13:00 | PROVIDERS: ATTENDING PHYSICIAN Family Medicine | DX: I69.320 Aphasia following cerebral infarction (principal); I69.390 Apraxia following cerebral infarction; Z73.6 Limitation of activities due to disability | CPT/HCPCS: 92507; 97010; 97112; 97163 ==

== ENCOUNTER 2024-07-15 13:04 | Outpatient (RCR) | payer OTHER, SELFPAY | END 2024-07-15 23:59 | disposition home or self-care (01) | LOC: ROT 13:04 | PROVIDERS: ATTENDING PHYSICIAN Family Medicine | DX: I69.320 Aphasia following cerebral infarction (principal); I69.390 Apraxia following cerebral infarction; Z73.6 Limitation of activities due to disability | CPT/HCPCS: 92507; 97010; 97110; 97112 ==

== ENCOUNTER 2024-08-24 17:02 | Outpatient (RCR) | payer OTHER, SELFPAY | END 2024-08-24 23:59 | disposition home or self-care (01) | LOC: ROT 17:02 | PROVIDERS: ATTENDING PHYSICIAN Family Medicine | DX: I69.320 Aphasia following cerebral infarction (principal); I69.390 Apraxia following cerebral infarction; Z73.6 Limitation of activities due to disability | CPT/HCPCS: 92507; 97010; 97110; 97112; 97530 ==

== ENCOUNTER 2024-09-17 15:11 | Outpatient (RCR) | payer OTHER, SELFPAY | END 2024-09-17 23:59 | disposition home or self-care (01) | LOC: ROT 15:11 | PROVIDERS: ATTENDING PHYSICIAN Family Medicine | DX: I69.320 Aphasia following cerebral infarction (principal); I69.390 Apraxia following cerebral infarction; Z73.6 Limitation of activities due to disability; M54.50 Low back pain, unspecified; M25.511 Pain in right shoulder | CPT/HCPCS: 97110; 97112; 97530 ==

== ENCOUNTER 2024-10-22 15:04 | Outpatient (RCR) | payer OTHER, SELFPAY | END 2024-10-22 23:59 | disposition home or self-care (01) | LOC: ROT 15:04 | PROVIDERS: ATTENDING PHYSICIAN Family Medicine | DX: I69.320 Aphasia following cerebral infarction (principal); I69.390 Apraxia following cerebral infarction; Z73.6 Limitation of activities due to disability; Z98.890 Other specified postprocedural states; M54.50 Low back pain, unspecified; M25.511 Pain in right shoulder | CPT/HCPCS: 97110; 97112; 97530 ==

== ENCOUNTER 2024-10-23 18:23 | Inpatient (IN) | payer OTHER, SELFPAY ==
[2024-10-23 15:09] VITALS: BP 134/74; BMI 25.9
[2024-10-23] MEDS: MORPHINE SULFATE 4 MG IV (15:31)
--- NOTE | 2024-10-23 16:01 | ED.GENMED ---
History of Present Illness
General
Chief Complaint: Fall
Source: patient
Time Seen by Provider: 10/23/24 15:14
History of Present Illness
History of Present Illness:
69-year-old female with past medical history of zmm-iqyazop-dzkrovmmm diabetes, hypertension, previous left femur fracture status post repair presenting to the emergency department for evaluation after she was walking, stepping down a curb when her
left leg gave out from under her causing her to fall forward and injuring the left lower leg. Patient has been unable to ambulate since the fall. She did receive 75 mcg of fentanyl on the way to the hospital but states while this did help her
initially pain is returning. Patient does note she has chronic pain secondary to the left femur fracture she has and does note she is going to physical therapy continuously for falls and weakness to the left leg.
Past History
Past History
ED Past Medical History: Asthma, HTN, NIDDM and Other (Diabetes, chronic pain from degenerative disease in her back, has pain medication at home, hypertension)
ED Past Surgical History: and Gynecological
Social History
Tobacco: Smoker
Alcohol: None
Drug: Marijuana (vape)
Personal:
Living: with roommate
Family History
Family History: Other (Mother with Alzheimer's)
Review of Systems
Review of Systems
All Other Systems: ROS reviewed and negative except as documented in HPI and ROS
Phy Exam
Physical Exam
Physical Exam:
GENERAL: Alert , appears in considerable pain
HEAD: Normocephalic atraumatic
EYE: conjunctiva clear
NECK: Supple
ENT: o/p clr, mmm.
CARDIAC: Regular rate and rhythm
LUNGS: Clear breath sounds bilaterally, no acute respiratory distress, no wheezes/rales/rhonchi
NEUROLOGICAL: Alert and oriented
SKIN: Warm and dry, skin intact.
MUSCULOSKELETAL: left lower extremity: Significant soft tissue swelling/hematoma to the proximal anterior aspect of the left tib-fib region with moderate to severe tenderness with any attempted palpation or attempted range of motion. Extremity is
warm and well-perfused and otherwise neurovascularly intact. Sensation is intact and equal to light touch bilaterally. Patient has no tenderness proximally along the femur. No abrasions or breaks in skin.
PSYCH: Normal and appropriate interaction.
Scores
Heart Failure Risk
Heart Failure Risk Score: Not Applicable
Heart Score for Chest Pain Patients
STEMI patient?: Not applicable
Withdrawal Assessment of Alcohol
Withdrawal Assessment Completed?: Not applicable
Course
Orders/Labs/Results
Orders:
Orders
10/23/24 15:15
Morphine Sulfate 4 mg IV NOW STA
CR Leg Tibia/fibula Right 2 Vw Urgent
Comment:
Reason For Exam: fall, edema
10/23/24 16:00
Basic Metabolic Panel Urgent
Complete Blood Count/With Diff Urgent
PTT Urgent
Prothrombin Time Urgent
10/23/24 16:09
Knee Immobilizer Left-Treatmen ONCE
10/23/24 16:13
HYDROmorphone [Dilaudid] 1 mg IV NOW STA
10/23/24 16:19
CT Lower Ext W/o Iv Cont Lt Urgent
Comment:
Reason For Exam: tib/fib fracture
10/23/24 16:45
ORTHOPEDIC CONSULT Urgent
Consulting Provider: Juan Gaitan
Was physician already notified: Yes
10/23/24 16:58
Admit/Transfer Patient As Directed
Co-Sign Provider:
Level of Care: Inpatient admission
Assign to:: Medical/Surgical
Physician / Group: alex walden
Diagnosis: tib/fib fracture
Reason for Hospitalization: tib/fib fracture
Expected length of stay greater than two midnights?: Yes
ELOS- Estimated Length of Stay in days: 3
I certify the patient meets the requirements for IP care: Yes
10/23/24 16:59
PRN Pain Medication Management As Directed
May give lesser potent ordered pain med per pt: Yes
preference::
Protocol:: Medication orders for pain may be administered in a
manner that supports deferring to patient preference
when the pt is:
- Requesting an ordered lesser potent pain medication.
Least to most potent pain medications are defined
as: acetaminophen < NSAID < tramadol < opioids
(morphine, oxycodone, hydromorphone).
- Requesting a lesser dose of the same medication IF
ORDERED.
- Requesting a less intrusive route of administration
if both routes are prescribed by the provider (PO <
IV).
10/23/24 17:00
Code Status As Directed
Resuscitation Status: Full Code
10/23/24 17:14
Type+Screen Routine
10/24/24 Breakfast
NPO
Allow oral meds: Yes
Allow clear liquids: No
10/24/24 07:00
0.9% Sodium Chloride 1000 ml [Nss] 1,000 ml IRRIG OR
CeFAZolin 2 GRAM [Ancef] 2 grams in 10 ml IV PRE PROCEDURE
10/24/24 08:00
Nicotine [Nicoderm Transdermal] 14 mg TRANSDERM DAILY
Abnormal Lab Results
10/23/24
16:00
Hct 36.2 L %
(37.0-47.0)
Abs Immat Gran (auto) 0.1 H 10^3/uL
(0-0.05)
Immature Gran % 0.7 H %
(0-0.5)
Lymphocytes % 17.6 L %
(20.5-51.1)
Carbon Dioxide 31 H mmol/L
(22-30)
BUN 20 H mg/dl
(7-17)
Glucose 130 H mg/dl
(70-99)
10/23/24 16:00
10/23/24 16:00
Vital Signs
Initial and Last Documented VS:
Initial Vital Signs
Temp Pulse Resp BP Pulse Ox
99.3 F 98 15 134/74 97
10/23/24 15:09 10/23/24 15:09 10/23/24 15:09 10/23/24 15:09 10/23/24 15:09
Last Documented Vital Signs
Temp Pulse Resp BP Pulse Ox
99.3 F 98 15 134/74 97
10/23/24 15:09 10/23/24 15:09 10/23/24 15:09 10/23/24 15:09 10/23/24 15:09
MDM/Problems Addressed
Differential Diagnosis Includes:
Contusion, hematoma, fracture, early compartment syndrome
MDM/Problems Addressed:
69-year-old female presenting to the emergency department for evaluation via EMS after fall resulting in significant left lower leg injury. Patient has large hematoma. Sent for stat x-ray which shows significant comminuted proximal tib-fib
fracture with concern for tibial plateau fracture. Patient has difficulty ambulating at baseline and is not a candidate to be discharged home for pain control reasons as well as close monitoring with concern for possible early compartment syndrome.
Will notify orthopedics. Pain control with IV morphine.
*Radiology
Radiology exam reviewed: preliminary read by ED provider (Comminuted proximal tibia fracture and proximal fibula for)
*Pulse Oximetry
Patient hypoxic: no
*Critical Care Note
Total Time (30-74mins, 75-104mins- exclusive of procedures): Not Applicable
Patient Management
Discussion with other providers: Hospitalist and Residential Program Director
Escalation/DeEscalation of care consider admission/obs:
Spoke with orthopedic team who agrees with plan and requesting CT scan for help with operative management/planning. Hospitalist team to admit.
ED Attending Note
-
Portions of this chart may have been created with voice recognition software.� Occasional wrong word or��sound alike� substitutions may have occurred due to the inherent limitations of voice recognition software.
Discharge Plan
Departure
Patient Disposition: Admit
Date of Disposition: 10/23/24
Time of Disposition: 16:25
Presentation/result/management discussed w/ accepting MD/DO: Hospitalist
Discharge Problem:
Fracture of proximal end of left tibia, Fracture of proximal end of left fibula, Accidental fall, Hematoma of left lower leg
Prescriptions:
No Action
gabapentin 400 mg capsule
400 mg PO QID
hydrocodone-acetaminophen 10-325 mg tablet
1 tab PO Q4H
Patient Comments:
10/23/24: filled 10/12/24 for 150 tabs over 30 days
duloxetine 60 mg capsule,delayed release(DR/EC)
60 mg PO BID
metformin 500 MG tablet extended release 24 hr
500 mg PO BID
aspirin 81 mg Tablet,Delayed Release (Dr/Ec)
81 mg PO DAILY Qty: 60 0RF
bumetanide 1 mg Tablet
1 mg PO BID
Ozempic 1 mg/dose (4 mg/3 mL) Pen Injector
1 mg SC TU
alprazolam 0.5 MG tablet
0.5 mg PO Q6HPRN PRN (Reason: anxiety)
Patient Comments:
10/23/24: filled 10/13/24 for 120 tabs over 30 days
morphine 15 mg tablet extended release
15 mg PO [id number] PRN (Reason: severe pain)
Patient Comments:
10/23/24: last filled 09/24/24 for 60 tabs over 30 days
Referrals:
Quinn Lo MD [Family Provider] -
Interventions
Interventions:
*Risk Screen - Suicide Last Done: 10/23/24 15:09
*General Assessment Last Done: 10/23/24 15:09
*Neglect/Abuse Screening Last Done: 10/23/24 15:09
*ED COVID-19 Vaccine History Last Done: 10/23/24 15:09
ED-Musculoskeletal Assessment Last Done: 10/23/24 15:14
ED- Neurological Assessment Last Done: 10/23/24 15:14
ED-Skin Assessment Last Done: 10/23/24 15:14
Discharge Date and Time
Print Language: LUXEMBOURGISH
[2024-10-23 16:15] LABS: % Basophils 0.3 % (0-2); % Eosinophils 2.2 % (0-6); % Immature Granulocytes 0.7 % (0-0.5); % Lymphocytes 17.6 % (20.5-51.1); % Monocytes 6.7 % (1.7-9.3); % Neutrophils 72.5 % (42.2-75.2); Absolute Eosinophils 0.2 10^3/uL (0-0.7); Absolute Immature Granulocytes 0.1 10^3/uL (0-0.05); Absolute Lymphocytes 1.6 10^3/uL (1.2-3.4); Absolute Monocytes 0.6 10^3/uL (0.1-0.6); Absolute Neutrophils 6.5 10^3/uL (1.4-6.5); Hematocrit 36.2 % (37.0-47.0); Mean Corp Hgb Conc. 33.1 g/dL (33.0-37.0); Mean Corpuscular Hgb 28.4 pg (27.0-31.0); Mean Corpuscular Volume 85.6 fL (81.0-99.0); Mean Platelet Volume 8.5 fL (7.4-10.4); Nucleated Red Blood Cells % 0 %; Platelet Count 333 10^3/uL (130-400); Red Blood Cell Count 4.23 10^6/uL (4.20-5.40); Red Cell Dist. Width 14.3 % (11.5-14.5); White Blood Cell Count 8.9 10^3/uL (4.8-10.8)
[2024-10-23] MEDS: DILAUDID 1 MG IV ×3 (16:15→21:11)
[2024-10-23 16:28] LABS: Blood Urea Nitrogen 20 mg/dl (7-17); Calcium 9.2 mg/dl (8.4-10.2); Carbon Dioxide 31 mmol/L (22-30); Chloride 103 mmol/L (98-107); Estimated Creatinine Clearance 62 ml/min; Glucose 130 mg/dl (70-99); PT 13.5 Sec (11.4-14.6); Potassium 4.6 mmol/L (3.5-5.1); Sodium 140 mmol/L (135-145); eGFR > 60.00
[2024-10-23 16:29] LABS: APTT 31.9 Sec (23.4-35.0)
--- NOTE | 2024-10-23 17:03 | HPS.HSE ---
Family Physician
-
Family Physician: Quinn Lo
Chief Complaint
-
Fall with Rt proximal Rt tibia and fibula Fx
History of Present Illness
HPI
69F current smoker , vape Marijuana HX Essential hypertension, DM2 with peripheral neuropathy, mild intermittent asthma, chronic pain syndrome
Chronic opiate dependence, major depression, anxiety disorder, Osteoporosis, previous left femur fracture status post ORIF seen at ER:
- evaluation following HX suggestive of mechanical fall forward and injuring the left lower leg
- has been unable to ambulate since the fall
- She did receive 75 mcg of fentanyl on the way to the hospital but states while this did help her initially pain is returning.
Medical History
Past Medical History
Past Medical History: Reports Other
Additional Past Medical History:
Essential hypertension
DM2
Diabetic peripheral neuropathy
Mild intermittent asthma
Chronic pain syndrome
Chronic opiate dependence
Mixed hyperlipidemia
Major depression
Anxiety disorder
Osteoporosis
Past Surgical History: Reports Gynocological and Orthopedic
Social History
Tobacco: Smoker
Alcohol: None
Drug: Marijuana
Family History
Family History: Not pertinent
Allergies / Home Medications
Allergies reflects when Allergies were last updated in [facility].
Home Medications with original date entered in [facility]
Allergy/Medication List:
Allergies
Allergy/AdvReac Type Severity Reaction Status Date / Time
No Known Allergies Allergy Verified 03/24/23 08:31
Home Medications
bumetanide 1 mg tablet 1 mg PO BID #60 tabs 08/25/20
alprazolam 0.5 mg tablet 0.5 mg PO Q6H PRN anxiety 11/12/23
duloxetine 60 mg capsule,delayed release 60 mg PO BID 11/12/23
gabapentin 400 mg capsule 400 mg PO QID 11/12/23
hydrocodone 10 mg-acetaminophen 325 mg tablet 1 tab PO Q4H PRN moderate pain 11/12/23
metformin 500 mg tablet,extended release 24 hr 500 mg PO BID 11/12/23
morphine 15 mg tablet,extended release 15 mg PO Q12H PRN severe pain 11/12/23
Review of Systems
-
Constitutional: Reports No Symptoms
EENT: Reports No Symptoms
Respiratory: Reports No Symptoms
Cardiac: Reports No Symptoms
Abdomen/GI: Reports No Symptoms
: Reports No Symptoms
Musculoskeletal: Reports See HPI
Skin: Reports No Symptoms
Neurological: Reports No Symptoms
Endocrine: Reports No Symptoms
Hematologic/Lymphatic: Reports No Symptoms
Psych: Reports No Symptoms
Physical Exam
Vital Signs
Vital Signs
Temp Pulse Resp BP Pulse Ox
99.3 F 98 15 134/74 97
10/23/24 15:09 10/23/24 15:09 10/23/24 15:09 10/23/24 15:09 10/23/24 15:09
Physical Exam
General: Well Developed, Well Nourished and No Apparent Distress
HEENT: NormoCephalic, Moist mucous membranes and Atraumatic
Respiratory: Clear
Cardiac: S1/S2 and Regular Rhythm; No Murmur or Rub
GI: Soft, Non Tender, Non Distended and Normal Bowel Sounds; No Organomegaly
Rectal: Deferred by Provider
Musculoskeletal: No Clubbing, No Cyanosis and Other (left lower extremity: Significant soft tissue swelling/hematoma to the proximal anterior aspect of the left tib-fib region with moderate to severe tenderness with any attempted palpation or
attempted range of motion)
Skin: No Rash
Neuro: Nonfocal/grossly intact
Psych: Calm
Laboratory Results
-
10/23/24 16:00
10/23/24 16:00
Laboratory Results
PT 13.5 Sec (11.4-14.6) 10/23/24 16:00
INR 1.00 10/23/24 16:00
APTT 31.9 Sec (23.4-35.0) 10/23/24 16:00
Data Reviewed
-
Diagnostic Radiology: Report Reviewed by me
Lab Data: Labs Reviewed by me
Old Records: Reviewed
Impression/Plan
-
Data: unremarkable
CR Leg Tibia/fibula Right 2 Vw
- Fractures of the proximal right tibia and fibula, as detailed above.
Last hospitalist admission: DATE OF ADMISSION: 11/12/2023 - DATE OF DISCHARGE: 11/14/2023
DISCHARGE DIAGNOSES:
1. Acute stroke with expressive aphasia.
2. Diabetes mellitus type 2 without hyperglycemia.
3. Acute hypoxic respiratory insufficiency.
4. Acute kidney injury.
5. Hyponatremia.
6. Acute nonischemic myocardial injury due to stroke.
ASSESSMENT & PLAN
Acute proximal Rt tibia and fibula s/p mechanical fall
- Benefit of surgery outweigh perioperative risk
- NPO after MN
- Fx set protocol: PRN analgesia, BW regime
- For OR in AM
HX stroke with expressive aphasia October 2023
- c/w THERAPEUTIC ASSISTANT ASA
DM2
Diabetic peripheral neuropathy
- Hold metformin at home
- low resistance NovoLog scale.
Essential HTN
Mild intermittent asthma
-stable.
Chronic pain syndrome/chronic opiate dependence
- f/u pain management Dr. Heck.
- on scheduled morphine 15 mg every 12 hours, hydrocodone 10/325 every 4 as needed pain.
Tobacco dependence
- Nicotine TD 14 mcg daily
-abstinence is encouraged
Obesity due to excess calories
- affects all aspects of life
DVT Px: SCDs
Full code
IP MS
[2024-10-23 18:27] VITALS: BP 123/53
--- NOTE | 2024-10-23 18:35 | CON.ORTHO ---
Addendum entered and electronically signed by Jin Bella PA-C 10/23/24 21:33:
We will plan for OR tomorrow morning, 10/24/2024, for RIGHT tibial plateau open reduction internal fixation under the direction of Dr. Gaitan.
Original Note:
Consultation
-
Date/Time Consultation Requested: 10/23/2024 @ 16:45
Date/Time Consultation Performed: 10/23/2024 @ 17:15
Requesting Provider: Pranav Segura PA-C
Performing Provider: Jin Bella PA-C for Dr. Juan Gaitan
Reason for Consultation: Right Proximal Tib-Fib Fracture
Consultation - Orthopedics
History
Orthopedic Surgery Note
CC: Mechanical Fall and Right Lower Extremity Pain
HPI: The patient is a 69-year-old female with a past medical history significant for DM2, diabetic peripheral neuropathy, mild intermittent asthma, chronic pain syndrome, chronic opiate dependence, major depression, anxiety disorder, osteoporosis,
essential hypertension, current smoker, right distal femur fracture ORIF with retrograde intramedullary nail 08/12/[address] Waller who presents to [facility] Emergency Department with complaints of right lower extremity pain after
sustaining a mechanical fall earlier today. She reports that she was walking, stepping down a curb, when her right leg gave out from under her causing her to fall forward and injuring her right lower extremity. She noted immediate pain in the
right lower extremity and inability to weight-bear. EMS was called and transferred her to [facility] Emergency Department where x-rays were performed and revealed comminuted fractures of the proximal right tibia and fibula. Orthopedic
Surgery was consulted regarding treatment recommendations moving forward.
PMH/PSH: Essential hypertension, DM2, diabetic peripheral neuropathy, mild intermittent asthma, chronic pain syndrome, chronic opiate dependence, mixed hyperlipidemia, major depression, anxiety disorder, osteoporosis. Reports Gynecological and
Orthopedic (Right distal femur fracture ORIF with retrograde intramedullary nail 08/12/[address] Waller).
Medications: Reviewed.
Family History: Family history was reviewed. Non-contributory.
Social history: Tobacco: Smoker. Alcohol: None. Drug: Marijuana. Lives in a one floor home.
Exam
General appearance: Pleasant. No acute distress.
Head: Normocephalic/atraumatic
Nose: No lesions or discharge.
Skin: No obvious rashes or open wounds
Lungs: No audible wheezing, no cough or sputum production
Musculoskeletal:
RLE:
Physical examination of the right lower extremity reveals skin intact. Well-healed prior surgical incision. Soft tissue edema/hematoma to the proximal anterior aspect of the right tib-fib region with severe tenderness to palpation. No erythema.
Knee range of motion deferred secondary to known fracture. Gentle logroll of the hip does not reproduce any hip pain. Gentle ankle ROM intact. Able to wiggle toes. Extremity is warm and well-perfused. Capillary refill is less than 2 seconds.
Calf is soft and nontender. Sensation is intact to light touch and equal bilaterally.
Imaging:
CR leg Tibia/Fibula Right 2 Vw was obtained at [facility] on 10/23/2024 and was made available for my review today. Findings: There is some a likely diffuse osteopenia. There is a comminuted fracture of the proximal diaphysis and
metaphysis of the right tibia extending at least to the medial and tibial plateau with some mild splaying of several small fracture fragments. An additional mildly impacted fracture of the proximal right fibula is seen, likely a dominantly
nondisplaced. Incompletely included on the study is an old healed fracture of the distal right femur with internal metallic fixation. Impression: Fractures of the proximal right tibia and fibula, as detailed above.
CT Lower Ext W/o Iv Cont RT was performed at [facility] on 10/23/2024 and was made available for my review today. Findings: There is a comminuted fracture involving the distal metaphysis and proximal diaphysis of the right tibia with some
mild splaying of several small fracture fragments. There appears to superiorly and medially to the medial tibial plateau. A comminuted fracture of the neck of the proximal right fibula is seen with some minor splaying of several small fracture
fragments. The partially included on the study is an old healed fracture of the distal right femur limited by beam hardening artifact from metallic surgical screws. Some arthrosclerotic vascular soft tissue calcifications are noted. Impression:
Comminuted fractures of the proximal right tibia and fibula, as noted above.
Assessment: 69-year-old female with comminuted fractures of the RIGHT proximal tibia and fibula.
Plan: Unfortunately, the patient has sustained comminuted fractures of the RIGHT proximal tibia and fibula following a mechanical fall earlier today. We discussed the treatment options. Recommended operative fixation. The risks, benefits,
potential complications, and expected post-operative course were reviewed. She agrees to proceed with surgical intervention. Surgical and blood consents were obtained and left at the OR front office assistant. We will plan for OR tomorrow morning, ,
for RIGHT tibial plateau open reduction internal fixation under the direction of Dr. Gaitan. Patient has been medically cleared to proceed with surgery. NPO pMN 10/23/2024. NWB to RLE in knee immoblizer. Ice therapy and elevation for edema control.
Neurovascular checks q2hr. Ancef and irrigation OCTOR. Continue with pain management as needed per primary team. All questions were answered. Orthopedic surgery will continue to follow along.
Allergies / Home Medications
Allergy/AdvReac Type Severity Reaction Status Date / Time
No Known Allergies Allergy Verified 03/24/23 08:31
�Medication �Instructions �Recorded
duloxetine 60 mg capsule,delayed 60 mg PO BID depression/pain 11/12/23
release
gabapentin 400 mg capsule 400 mg PO QID pain/neuropathy 11/12/23
hydrocodone 10 mg-acetaminophen 1 tab PO Q4H moderate pain 11/12/23
325 mg tablet
metformin 500 mg tablet,extended 500 mg PO BID diabetes 11/12/23
release 24 hr
aspirin 81 mg tablet,delayed 81 mg PO DAILY #60 tabs 11/14/23
release
alprazolam 0.5 mg tablet 0.5 mg PO Q6HPRN PRN anxiety 10/23/24
bumetanide 1 mg tablet 1 mg PO BID 10/23/24
morphine 15 mg tablet,extended 15 mg PO [id number] PRN severe pain 10/23/24
release
semaglutide 1 mg/dose (4 mg/3 mL) 1 mg SC TU 10/23/24
subcutaneous pen injector (Ozempic)
Vital Signs / Lab Results
Temp Pulse Resp BP Pulse Ox
99.3 F 98 15 134/74 97
10/23/24 15:09 10/23/24 15:09 10/23/24 15:09 10/23/24 15:09 10/23/24 15:09
10/23/24 16:00
10/23/24 16:00
[2024-10-23 21:07] VITALS: BP 148/66
[2024-10-23] MEDS: SENOKOT 17.2 MG PO (21:08)
[2024-10-23] MEDS: BUMEX 1 MG PO (21:08)
[2024-10-23] MEDS: NEURONTIN 400 MG PO (21:09)
[2024-10-23] MEDS: COLACE 100 MG PO (21:09)
[2024-10-23] MEDS: CYMBALTA DELAYED RELEASE 60 MG PO (21:09)
[2024-10-23] MEDS: NEURONTIN PO (21:20)
[2024-10-23] MEDS: NICODERM TRANSDERMAL 14 MG TRANSDERM (21:21)
[2024-10-23] MEDS: XANAX 0.5 MG PO (21:21)
[2024-10-23 21:47] LABS: Glucose - Point of Care 109 mg/dl (70-99)
[2024-10-23 23:55] VITALS: BP 177/81
[2024-10-24] VITALS (12 sets, daily range): BP systolic 106–177; BP diastolic 49–81
[2024-10-24] MEDS: MORPHINE SULFATE 2 MG IV ×2 (00:24→06:20)
[2024-10-24 07:14] LABS: Glucose - Point of Care 131 mg/dl (70-99)
[2024-10-24] MEDS: NOVOLOG FLEXPEN-LOW RESISTANCE SC (07:30)
[2024-10-24] MEDS: BUMEX PO (08:20)
[2024-10-24] MEDS: SENOKOT PO (08:21)
[2024-10-24] MEDS: NEURONTIN PO ×2 (08:21→12:21)
[2024-10-24] MEDS: COLACE PO (08:21)
[2024-10-24 10:11] LABS: Glucose - Point of Care 194 mg/dl (70-99)
[2024-10-24] MEDS: NOVOLOG vial 2 UNITS SC (10:25)
[2024-10-24 10:42] LABS: Glycohemoglobin (HgbA1c) 6.4 % (4.0-5.6)
--- NOTE | 2024-10-24 10:45 | PTCARENOTE ---
Pt returned from PACU via bed, A,A+O x 3, c/o RT leg pain. Morning meds given, MS contin, Neurontin. Will assess prn pain meds and medicate when able. RT leg with immobilizer on, dressing D+I. IV fluids infusing as ordered. O2 2L on-pox 93%. Pt
encouraged to use IS.Will continue to monitor
[2024-10-24] MEDS: MS CONTIN (EXTENDED RELEASE) 15 MG PO ×2 (10:50→20:57)
[2024-10-24] MEDS: CYMBALTA DELAYED RELEASE 60 MG PO ×2 (10:50→20:57)
[2024-10-24] MEDS: NICODERM TRANSDERMAL 14 MG TRANSDERM (10:50)
[2024-10-24] MEDS: ASPIR LOW (ENTERIC COATED) 81 MG PO (10:50)
[2024-10-24] MEDS: BUMEX 1 MG PO ×2 (10:51→15:26)
[2024-10-24] MEDS: FLOMAX 0.4 MG PO (10:51)
[2024-10-24] MEDS: NEURONTIN 400 MG PO ×3 (10:51→21:02)
[2024-10-24] MEDS: NSS 1000 IV ×2 (11:14→22:15)
[2024-10-24] MEDS: DILAUDID 0.25 MG IV ×2 (11:25→15:25)
[2024-10-24] MEDS: ANCEF 5 IV ×2 (11:40→20:55)
[2024-10-24 11:59] LABS: Glucose - Point of Care 197 mg/dl (70-99)
[2024-10-24] MEDS: NOVOLOG FLEXPEN-LOW RESISTANCE 1 UNITS SC ×2 (12:18→17:11)
[2024-10-24] MEDS: ROXICODONE 10 MG PO (12:57)
--- NOTE | 2024-10-24 12:58 | W.PN.HOSP.TC ---
Today's Communication/Plan
-
ORIF today
asa 325
pain control
pt/ot
Assessment / Plan
Assessment / Plan
Physical Exam
General: Well Developed, Well Nourished and No Apparent Distress
HEENT: NormoCephalic, Moist mucous membranes and Atraumatic
Respiratory: Clear
Cardiac: S1/S2 and Regular Rhythm; No Murmur or Rub
GI: Soft, Non Tender, Non Distended and Normal Bowel Sounds; No Organomegaly
Rectal: Deferred by Provider
Musculoskeletal: No Clubbing, No Cyanosis and Other (left lower extremity: Significant soft tissue swelling/hematoma to the proximal anterior aspect of the left tib-fib region with moderate to severe tenderness with any attempted palpation or
attempted range of motion)
Skin: No Rash
Neuro: Nonfocal/grossly intact
Psych: Calm
Acute proximal Rt tibia and fibula s/p mechanical fall
-RIGHT tibial plateau open reduction internal fixation 10/24
-pain control
dvt ppx as per ortho
-pt/ot
-maintain hgb >7
HX stroke with expressive aphasia October 2023
- c/w RADIOLOGICAL TECHNICIAN ASA - can go back on 81mg once 325mg course completed
DM2
Diabetic peripheral neuropathy
- Hold metformin at home
- low resistance NovoLog scale.
Essential HTN
Mild intermittent asthma
-stable.
Chronic pain syndrome/chronic opiate dependence
- f/u pain management Dr. Heck.
- on scheduled morphine 15 mg every 12 hours, hydrocodone 10/325 every 4 as needed pain.
Tobacco dependence
- Nicotine TD 14 mcg daily
-abstinence is encouraged
Obesity due to excess calories
- affects all aspects of life
DVT Px: ASA 325
Full code
Anticipated Discharge: 24 - 48 hours
Subjective/Interval History
-
Date of Service: October 24, 2024
no acute events, or today
Objective Data
-
Vital Signs:
Vital Signs
Temp Pulse Resp BP Pulse Ox
98.5 F 88 18 122/65 91
10/24/24 11:45 10/24/24 11:45 10/24/24 11:45 10/24/24 11:45 10/24/24 11:45
I&O
10/23/24 10/24/24 10/25/24
06:59 06:59 06:59
Intake Total 50 / 50
Output Total 1650 / 1650
Balance -1600 / -1600
Review of Systems
-
History Source: Patient
All other systems: Reviewed and negative
Data Reviewed
-
Diagnostic Radiology: Report Reviewed by me
CT Scan: Report Reviewed by me
Labs: Labs Reviewed by me
--- NOTE | 2024-10-24 15:21 | CM ---
senior procurement manager reviewed patient's chart and met with patient and her partner Rich at bedside, patient resides in a one story home with partner, no steps to enter, patient is independent with adl's and ambulation, no dme, patient drives, no home
oxygen, with visiting nurses.
PCP: Dr Quinn Spence
Pharmacy: [facility].
Plan; Home with visiting nurses, patient has selected [facility], referral sent to [facility].
[2024-10-24 17:08] LABS: Glucose - Point of Care 174 mg/dl (70-99)
[2024-10-24] MEDS: ASPIRIN 325 MG PO (17:11)
[2024-10-24] MEDS: COLACE 100 MG PO (20:57)
[2024-10-24] MEDS: SENOKOT 17.2 MG PO (20:57)
[2024-10-24 22:26] LABS: Glucose - Point of Care 173 mg/dl (70-99)
[2024-10-25] VITALS (9 sets, daily range): BP systolic 100–140; BP diastolic 55–75; PULSE 82–84; O2SAT 94–95
[2024-10-25] MEDS: DILAUDID 0.25 MG IV ×4 (02:49→20:36)
[2024-10-25] MEDS: ROXICODONE 10 MG PO ×4 (03:32→21:54)
[2024-10-25] MEDS: XANAX 0.5 MG PO (03:35)
[2024-10-25] MEDS: COLACE 100 MG PO ×2 (07:46→19:43)
[2024-10-25] MEDS: ASPIRIN 325 MG PO (07:46)
[2024-10-25] MEDS: CYMBALTA DELAYED RELEASE 60 MG PO ×2 (07:46→19:43)
[2024-10-25] MEDS: BUMEX 1 MG PO ×2 (07:46→15:55)
[2024-10-25] MEDS: NICODERM TRANSDERMAL 14 MG TRANSDERM (07:47)
[2024-10-25] MEDS: FLOMAX 0.4 MG PO (07:47)
[2024-10-25] MEDS: SENOKOT 17.2 MG PO (07:47)
[2024-10-25] MEDS: NEURONTIN 400 MG PO ×3 (07:47→21:50)
[2024-10-25] MEDS: MS CONTIN (EXTENDED RELEASE) 15 MG PO ×2 (07:47→19:43)
[2024-10-25 07:57] LABS: Blood Urea Nitrogen 24 mg/dl (7-17); Calcium 8.6 mg/dl (8.4-10.2); Carbon Dioxide 26 mmol/L (22-30); Chloride 104 mmol/L (98-107); Estimated Creatinine Clearance 69 ml/min; Glucose 125 mg/dl (70-99); Potassium 4.2 mmol/L (3.5-5.1); Sodium 138 mmol/L (135-145); eGFR > 60.00
[2024-10-25 07:58] LABS: Glucose - Point of Care 154 mg/dl (70-99)
[2024-10-25 07:59] LABS: Hematocrit 29.9 % (37.0-47.0); Hemoglobin 9.8 g/dL (12.0-16.0); Mean Corp Hgb Conc. 32.8 g/dL (33.0-37.0); Mean Corpuscular Hgb 28.5 pg (27.0-31.0); Mean Corpuscular Volume 86.9 fL (81.0-99.0); Mean Platelet Volume 9.3 fL (7.4-10.4); Platelet Count 260 10^3/uL (130-400); Red Blood Cell Count 3.44 10^6/uL (4.20-5.40); Red Cell Dist. Width 14.3 % (11.5-14.5); White Blood Cell Count 11.5 10^3/uL (4.8-10.8)
[2024-10-25] MEDS: NOVOLOG FLEXPEN-LOW RESISTANCE 1 UNITS SC (08:37)
[2024-10-25] MEDS: NSS 1000 IV (10:31)
[2024-10-25 11:00] LABS: Glucose - Point of Care 248 mg/dl (70-99)
[2024-10-25] MEDS: NOVOLOG FLEXPEN-LOW RESISTANCE 2 UNITS SC (11:40)
--- NOTE | 2024-10-25 12:00 | PTCARENOTE ---
Report given to Rain on . Pt moved there via bed without difficulty.
--- NOTE | 2024-10-25 13:15 | W.PN.HOSP.TC ---
Today's Communication/Plan
-
pain control
pt/ot
montior hgb
ortho recs
Assessment / Plan
Assessment / Plan
Physical Exam
General: Well Developed, Well Nourished and No Apparent Distress
HEENT: NormoCephalic, Moist mucous membranes and Atraumatic
Respiratory: Clear
Cardiac: S1/S2 and Regular Rhythm; No Murmur or Rub
GI: Soft, Non Tender, Non Distended and Normal Bowel Sounds; No Organomegaly
Rectal: Deferred by Provider
Musculoskeletal: No Clubbing, No Cyanosis and Other (left lower extremity: Significant soft tissue swelling/hematoma to the proximal anterior aspect of the left tib-fib region with moderate to severe tenderness with any attempted palpation or
attempted range of motion)
Skin: No Rash
Neuro: Nonfocal/grossly intact
Psych: Calm
Acute proximal Rt tibia and fibula s/p mechanical fall
-RIGHT tibial plateau open reduction internal fixation 10/24
-pain control
dvt ppx as per ortho
-pt/ot
-maintain hgb >7
#Acute Blood Loss anemia
-probable intraop v post op complcation
-monitor hgb on ASA 325mg
HX stroke with expressive aphasia October 2023
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
DM2
Diabetic peripheral neuropathy
- Hold metformin at home
- low resistance NovoLog scale.
Essential HTN
Mild intermittent asthma
-stable.
Chronic pain syndrome/chronic opiate dependence
- f/u pain management Dr. Heck.
- on scheduled morphine 15 mg every 12 hours, hydrocodone 10/325 every 4 as needed pain.
Tobacco dependence
- Nicotine TD 14 mcg daily
-abstinence is encouraged
Obesity due to excess calories
- affects all aspects of life
DVT Px: ASA 325
Full code
Anticipated Discharge: 24 - 48 hours
Subjective/Interval History
-
Date of Service: October 25, 2024
tolerated procedure, in pain
Objective Data
-
Labs:
Laboratory Results
10/25/24
06:21
WBC 11.5 H
Hgb 9.8 L
Hct 29.9 L
Plt Count 260 D
Sodium 138
Potassium 4.2
Chloride 104
Carbon Dioxide 26
BUN 24 H
Creatinine 0.8
Glucose 125 H
Calcium 8.6
Vital Signs:
Vital Signs
Temp Pulse Resp BP Pulse Ox
98.0 F 82 16 130/66 97
10/25/24 11:59 10/25/24 13:04 10/25/24 11:59 10/25/24 13:04 10/25/24 12:37
I&O
10/24/24 10/25/24 10/26/24
06:59 06:59 06:59
Intake Total 750 / 750
Output Total 2400 / 2400
Balance -1650 / -1650
Review of Systems
-
History Source: Patient
All other systems: Not reviewed unless documented
Data Reviewed
-
Diagnostic Radiology: Report Reviewed by me
CT Scan: Report Reviewed by me
Labs: Labs Reviewed by me
--- NOTE | 2024-10-25 14:50 | W.PN.ORTHO ---
Today's Communication / Plan
-
69-year-old female POD #1 RIGHT Tibial Plateau ORIF 10/24/[address] Gaitan.
- NWB RLE. Knee immoblizer intact.
- ASA 325mg daily x 4 weeks for DVT prophylaxis.
- PT/OT.
- Ice therapy and elevation for edema control.
- Pain control per primary team.
- Case management regarding discharge planning.
- Follow-up as outpatient 10-14 days from [facility] for staple removal, radiographic and clinical evaluation.
- Orthopedic surgery will continue to follow along.
Assessment
.
Distal Motor Intact: Yes
Dressing:
Knee immobilizer intact. Surgical dressings clean, dry, and intact.
Knee ROM deferred.
Able to wiggle toes.
DP pulse palpable. Capillary refill is less than 2 seconds. Sensation intact to light touch distally.
Assessment:
POD #1 RIGHT Tibial Plateau ORIF with Dr. Gaitan 10/24/2024.
Plan
.
Surgery / Date: Right Tibial Plateau ORIF / 10-24-24 Arnie
DVT Prophylaxis: Aspirin
Activity:
Out of bed.
PT/OT.
NWB RLE with KI intact.
Discharge Plan: Home w/ [facility]
Discharge Information:
Appreciate CM.
Subjective
.
.:
Patient resting comfortably in bed. Worked with PT/OT today. Daughter at bedside. She reports that her pain is controlled at this current time. She denies any paresthesias.
Vital Signs and Labs
.
Vital Signs and Labs:
Lab Results
10/25/24 06:21
10/25/24 06:21
Temp Pulse Resp BP Pulse Ox
98.0 F 82 16 130/66 97
10/25/24 11:59 10/25/24 13:04 10/25/24 11:59 10/25/24 13:04 10/25/24 12:37
PT 13.5 Sec (11.4-14.6) 10/23/24 16:00
INR 1.00 10/23/24 16:00
[2024-10-25 17:04] LABS: Glucose - Point of Care 126 mg/dl (70-99)
[2024-10-25] MEDS: NOVOLOG FLEXPEN-LOW RESISTANCE SC (17:22)
[2024-10-25] MEDS: NEURONTIN PO (17:34)
[2024-10-25] MEDS: SENOKOT PO (19:43)
[2024-10-25 21:38] LABS: Glucose - Point of Care 118 mg/dl (70-99)
[2024-10-26] MEDS: DILAUDID 0.25 MG IV ×2 (05:58→09:04)
[2024-10-26 06:13] LABS: Hematocrit 28.3 % (37.0-47.0); Hemoglobin 9.3 g/dL (12.0-16.0); Mean Corp Hgb Conc. 32.9 g/dL (33.0-37.0); Mean Corpuscular Hgb 28.4 pg (27.0-31.0); Mean Corpuscular Volume 86.3 fL (81.0-99.0); Mean Platelet Volume 8.9 fL (7.4-10.4); Platelet Count 230 10^3/uL (130-400); Red Blood Cell Count 3.28 10^6/uL (4.20-5.40); Red Cell Dist. Width 14.1 % (11.5-14.5); White Blood Cell Count 8.2 10^3/uL (4.8-10.8)
[2024-10-26 06:42] LABS: ALT (SGPT) < 10 U/L (0-35); AST (SGOT) 18 U/L (14-36); Albumin 3.2 g/dl (3.5-5.0); Alkaline Phosphatase 68 U/L (38-126); Blood Urea Nitrogen 18 mg/dl (7-17); Calcium 8.8 mg/dl (8.4-10.2); Carbon Dioxide 28 mmol/L (22-30); Chloride 103 mmol/L (98-107); Estimated Creatinine Clearance 79 ml/min; Glucose 106 mg/dl (70-99); Sodium 138 mmol/L (135-145); Total Bilirubin 0.7 mg/dl (0.2-1.3); Total Protein 5.7 g/dl (6.3-8.2); eGFR > 60.00
[2024-10-26 07:06] VITALS: BP 126/61
--- NOTE | 2024-10-26 07:35 | W.PN.HOSP.TC ---
Today's Communication/Plan
-
Weaning off IV pain regimen, still requesting - informed patient and nurse to aim for oxy use
Monitor hemoglobin for additional 24 hours to ensure no further drop
Assessment / Plan
Assessment / Plan
Physical Exam
General: Well Developed, Well Nourished and No Apparent Distress
HEENT: NormoCephalic, Moist mucous membranes and Atraumatic
Respiratory: Clear
Cardiac: S1/S2 and Regular Rhythm; No Murmur or Rub
GI: Soft, Non Tender, Non Distended and Normal Bowel Sounds; No Organomegaly
Rectal: Deferred by Provider
Musculoskeletal: No Clubbing, No Cyanosis and Other (left lower extremity: Significant soft tissue swelling/hematoma to the proximal anterior aspect of the left tib-fib region with moderate to severe tenderness with any attempted palpation or
attempted range of motion)
Skin: No Rash
Neuro: Nonfocal/grossly intact
Psych: Calm
Acute proximal Rt tibia and fibula s/p mechanical fall
-RIGHT tibial plateau open reduction internal fixation 10/24
-pain control
dvt ppx as per ortho
NWB RLE. Knee immobilizer intact.
- ASA 325mg daily x 4 weeks for DVT prophylaxis. can resume 81mg therafter
- PT/OT.
- Ice therapy and elevation for edema control.
�Pain control, still require IV regimen at this time - add oxy 10mg in effort to wean off iv pain regimen
-- Follow-up as outpatient 10-14 days from [facility] for staple removal, radiographic and clinical evaluation.
#Acute Blood Loss anemia
-probable intraop v post op complcation
-monitor hgb on ASA 325mg
HX stroke with expressive aphasia October 2023
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
DM2
Diabetic peripheral neuropathy
- Hold metformin at home
- low resistance NovoLog scale.
Essential HTN
Mild intermittent asthma
-stable.
Chronic pain syndrome/chronic opiate dependence
- f/u pain management Dr. Heck.
- on scheduled morphine 15 mg every 12 hours, hydrocodone 10/325 every 4 as needed pain.
Tobacco dependence
- Nicotine TD 14 mcg daily
-abstinence is encouraged
Obesity due to excess calories
- affects all aspects of life
DVT Px: ASA 325
Full code
Anticipated Discharge: Within 24 hours
Subjective/Interval History
-
Date of Service: October 26, 2024
No acute events, pain improving although still requiring IV pain regimen
Objective Data
-
Labs:
Laboratory Results
10/26/24
05:25
WBC 8.2
Hgb 9.3 L
Hct 28.3 L
Plt Count 230
Sodium 138
Potassium 4.0
Chloride 103
Carbon Dioxide 28
BUN 18 H
Creatinine 0.7
Glucose 106 H
Calcium 8.8
Total Bilirubin 0.7
AST 18
ALT < 10
Alkaline Phosphatase 68
Vital Signs:
Vital Signs
Temp Pulse Resp BP Pulse Ox
98.6 F 83 17 130/55 96
10/25/24 23:15 10/25/24 23:15 10/25/24 23:15 10/25/24 23:15 10/25/24 23:15
I&O
10/25/24 10/26/24 10/27/24
06:59 06:59 06:59
Intake Total 750 / 750 1320 / 1320
Output Total 2400 / 2400
Balance -1650 / -1650 1320 / 1320
Review of Systems
-
History Source: Patient
All other systems: Not reviewed unless documented
Data Reviewed
-
Diagnostic Radiology: Report Reviewed by me
CT Scan: Report Reviewed by me
Labs: Labs Reviewed by me
[2024-10-26 08:33] LABS: Glucose - Point of Care 113 mg/dl (70-99)
--- NOTE | 2024-10-26 08:44 | W.PN.ORTHO ---
Today's Communication / Plan
-
Appreciate the primary medical team with their management, continue Tx
Dispo likely rehab, appreciate CM
NWB RLE. Knee immoblizer intact.
PT/OT
ASA 325mg daily x 4 weeks for DVT prophylaxis.
Ice therapy and elevation for edema control. pain control per primary
Follow-up as outpatient 10-14 days from [facility] for staple removal, radiographic and clinical evaluation.
Ortho to sign off for now, please reengage with any addition questions, as necessary
Assessment
.
Distal Motor Intact: Yes
Dressing:
Clean, dry and intact. KI, dressing in place
Assessment:
POD#2 Right tibial plateau ORIF
Plan
.
Surgery / Date: Right Tibial Plateau ORIF November 17 ([facility])
DVT Prophylaxis: Aspirin
Activity:
Out of bed. Strict NWB. KI to remain
PT/OT
Discharge Plan: Other (per CM)
Subjective
.
.:
Patient resting comfortably. Did not respond to verbal stim, therefore I DND
Vital Signs and Labs
.
Vital Signs and Labs:
Lab Results
10/26/24 05:25
10/26/24 05:25
Temp Pulse Resp BP Pulse Ox
97.9 F 85 14 126/61 95
10/26/24 07:06 10/26/24 07:06 10/26/24 07:06 10/26/24 07:06 10/26/24 07:06
PT 13.5 Sec (11.4-14.6) 10/23/24 16:00
INR 1.00 10/23/24 16:00
[2024-10-26] MEDS: NOVOLOG FLEXPEN-LOW RESISTANCE SC ×3 (08:50→18:19)
[2024-10-26] MEDS: BUMEX 1 MG PO ×2 (08:51→15:45)
[2024-10-26] MEDS: ASPIRIN 325 MG PO (08:51)
[2024-10-26] MEDS: COLACE 100 MG PO ×2 (08:51→19:30)
[2024-10-26] MEDS: SENOKOT 17.2 MG PO ×2 (08:51→19:30)
[2024-10-26] MEDS: CYMBALTA DELAYED RELEASE 60 MG PO ×2 (08:51→19:30)
[2024-10-26] MEDS: NEURONTIN 400 MG PO ×4 (08:52→21:03)
[2024-10-26] MEDS: MS CONTIN (EXTENDED RELEASE) 15 MG PO ×2 (08:52→20:59)
[2024-10-26] MEDS: NICODERM TRANSDERMAL 14 MG TRANSDERM (08:52)
--- NOTE | 2024-10-26 10:30 | CM ---
Met with pt at bedside
PT/OT recs - HH
Referral previously made to [facility]; Liaison met with pt
Pt reports she will have ride at discharge
Plan [facility]
--- NOTE | 2024-10-26 10:41 | VNURNOTE ---
Home Health Liaison met with patient at bedside to discuss [facility] nurse/therapy, visits, schedule and homebound status. Patient is agreeable and understands that visits at home will be 2-3 x per week to assess and teach medical management. She
prefers to obtain a wheelchair from [facility] today. Patient is aware that [facility] will contact them for start of care in 1-2 days after discharge from .
[facility] referral accepted in [facility].
[2024-10-26] MEDS: ROXICODONE 10 MG PO ×3 (11:51→23:44)
[2024-10-26 12:00] LABS: Glucose - Point of Care 136 mg/dl (70-99)
[2024-10-26 15:32] VITALS: BP 113/55
[2024-10-26 18:08] LABS: Glucose - Point of Care 120 mg/dl (70-99)
[2024-10-26 21:44] LABS: Glucose - Point of Care 138 mg/dl (70-99)
[2024-10-26 23:30] VITALS: BP 141/95
[2024-10-27] MEDS: ROXICODONE 10 MG PO ×2 (06:43→11:11)
[2024-10-27 08:09] LABS: Hematocrit 29.8 % (37.0-47.0); Mean Corp Hgb Conc. 33.6 g/dL (33.0-37.0); Mean Corpuscular Hgb 28.7 pg (27.0-31.0); Mean Corpuscular Volume 85.4 fL (81.0-99.0); Mean Platelet Volume 9.3 fL (7.4-10.4); Platelet Count 270 10^3/uL (130-400); Red Blood Cell Count 3.49 10^6/uL (4.20-5.40); White Blood Cell Count 8.2 10^3/uL (4.8-10.8)
[2024-10-27 08:13] LABS: Glucose - Point of Care 113 mg/dl (70-99)
[2024-10-27 08:46] LABS: ALT (SGPT) 11 U/L (0-35); AST (SGOT) 19 U/L (14-36); Albumin 3.2 g/dl (3.5-5.0); Alkaline Phosphatase 76 U/L (38-126); Blood Urea Nitrogen 24 mg/dl (7-17); Calcium 8.9 mg/dl (8.4-10.2); Carbon Dioxide 28 mmol/L (22-30); Chloride 102 mmol/L (98-107); Estimated Creatinine Clearance 69 ml/min; Glucose 109 mg/dl (70-99); Potassium 4.1 mmol/L (3.5-5.1); Sodium 138 mmol/L (135-145); Total Bilirubin 0.6 mg/dl (0.2-1.3); Total Protein 5.9 g/dl (6.3-8.2); eGFR > 60.00
[2024-10-27] MEDS: NOVOLOG FLEXPEN-LOW RESISTANCE SC (09:29)
[2024-10-27] MEDS: NICODERM TRANSDERMAL 14 MG TRANSDERM (09:38)
[2024-10-27] MEDS: MS CONTIN (EXTENDED RELEASE) 15 MG PO (09:38)
[2024-10-27] MEDS: ASPIRIN 325 MG PO (09:39)
[2024-10-27] MEDS: SENOKOT 17.2 MG PO (09:39)
[2024-10-27] MEDS: CYMBALTA DELAYED RELEASE 60 MG PO (09:39)
[2024-10-27] MEDS: NEURONTIN 400 MG PO (09:39)
[2024-10-27] MEDS: COLACE 100 MG PO (09:39)
[2024-10-27] MEDS: BUMEX 1 MG PO (09:39)
[2024-10-27 10:10] VITALS: BP 116/57; PULSE 101
--- NOTE | 2024-10-27 11:04 | W.PN.HOSP.TC ---
Addendum entered and electronically signed by Maylin Abad MD 10/27/24 15:03:
total DC time 36 min
Original Note:
Today's Communication/Plan
-
see A/P
Assessment / Plan
Assessment / Plan
A/P:
# Acute proximal R tibia and fibula fracture 2/2 mechanical fall
s/p RIGHT tibial plateau open reduction internal fixation 10/24
pain control
DVT ppx with ASA per ortho. ASA 325mg daily x 4 weeks , then resume 81mg thereafter
NWB RLE. Knee immobilizer intact.
Follow-up as outpatient 10-14 days from [facility] for staple removal, radiographic and clinical evaluation.
PT/OT cleared for DC back home with .
# Acute Blood Loss anemia post OR
Hgb stable at 10.0 today
# HX stroke with expressive aphasia October 2023
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
# DM2
# Diabetic peripheral neuropathy
Hold metformin at home
low resistance NovoLog scale.
# Essential HTN
# Mild intermittent asthma, stable.
# Chronic pain syndrome/chronic opiate dependence
f/u pain management Dr. Heck.
on scheduled morphine 15 mg every 12 hours, hydrocodone 10/325 every 4 as needed pain.
# Tobacco dependence
Nicotine TD 14 mcg daily
abstinence is encouraged
# Obesity due to excess calories, affects all aspects of life
DVT Px: ASA 325
Full code
d/w family at bedside
Anticipated Discharge: Today
Subjective/Interval History
-
Date of Service: October 27, 2024
Objective Data
-
Labs:
Laboratory Results
10/27/24
06:43
WBC 8.2
Hgb 10.0 L
Hct 29.8 L
Plt Count 270
Sodium 138
Potassium 4.1
Chloride 102
Carbon Dioxide 28
BUN 24 H
Creatinine 0.8
Glucose 109 H
Calcium 8.9
Total Bilirubin 0.6
AST 19
ALT 11
Alkaline Phosphatase 76
Vital Signs:
Vital Signs
Temp Pulse Resp BP Pulse Ox
36.9 C 85 16 141/95 98
10/27/24 07:42 10/27/24 07:42 10/26/24 23:30 10/26/24 23:30 10/27/24 07:42
I&O
10/26/24 10/27/24 10/28/24
06:59 06:59 06:59
Intake Total 1320 / 1320 2880 / 2880
Balance 1320 / 1320 2880 / 2880
Review of Systems
-
History Source: Patient
All other systems: Reviewed and negative
Physical Exam
-
General: Well Developed, Well Nourished, No Apparent Distress, Comfortable and Conversant; Negative Respiratory Distress
HEENT: Normocephalic, Atraumatic, Nose Appears Normal and Ears Appear Normal; Negative Oxygen
Respiratory: Clear to Auscultation and Non Labored Respirations; Negative Accessory Resp Muscle Use
Cardiac: Regular Rhythm and S1/S2
GI: Soft, Nontender, Nondistended and Normal Bowel Sounds
Skin: Warm and Dry
Neuro: Awake, Alert, Oriented and AO x 3
Psych: Calm and Intact Judgement/Insight
Data Reviewed
-
Labs: Labs Reviewed by me
[2024-10-27 11:23] VITALS: BP 133/61
[2024-10-27 11:34] LABS: Glucose - Point of Care 162 mg/dl (70-99)
--- NOTE | 2024-10-27 11:48 | CM ---
CM reviewed pt with Dr Abad- ready for dc today
Bedside meeting with pt- plan for home withj [facility]
Family has obtained WC for her through [facility] order on chart and IMM completed day prior
Discharge Disposition- home with [facility], spouse transport
--- NOTE | 2024-10-27 14:58 | W.DCSUMMARY ---
Discharge Summary
Discharge Data
Date of Admission: 10/23/24
Date of Discharge: 10/27/24
-
Pending Results: No
Hospital Course
Principal Diagnosis:
Acute proximal R tibia and fibula fracture 2/2 mechanical fall s/p RIGHT tibial plateau open reduction internal fixation 10/24
Chronic Diagnoses:�
History of stroke October 2023 with expressive aphasia
Qbn-jvselqm-lqqgazuwd diabetes
Diabetic neuropathy
Essential hypertension
Mild intermittent asthma, stable.
Chronic pain syndrome chronic pain syndrome/chronic opiate dependence
Tobacco dependence
Consultations:�
Orthopedic
Procedures:�
RIGHT tibial plateau open reduction internal fixation 10/24
Clinical course:�
This is a 69-year-old female, with past medical history as stated above, who presented with mechanical fall and Rt tibia and fibula fracture.
Problem 1:
Acute proximal R tibia and fibula fracture 2/2 mechanical fall.
She underwent RIGHT tibial plateau open reduction internal fixation on 10/24.
She can continue aspirin full dose 325mg daily x 4 weeks for DVT prophylaxis, then resume 81mg thereafter.
She has been informed to keep right leg NWB with knee immobilizer.
She can follow-up with ortho outpatient in 10-14 days for staple removal, radiographic and clinical evaluation.
She was cleared to be discharged back home with home health per PT OT.
As for the rest of her medical problems, they were stable during her hospital stay.
Discharge Plan
-
Patient Disposition: Home with Home Care
Discharge Diagnosis/Procedures: Acute proximal R tibia and fibula fracture due to mechanical fall, status post RIGHT tibial plateau open reduction internal fixation 10/24
Condition: Good
Diet: As tolerated and Diabetic, Carb Controlled
Activity: Do not bear weight R leg and With Walker
Driving Restrictions: No driving
Bathing Restrictions: OK to Shower
Wound Care: Dressing and KI to remain
Referrals:
Jena,Jin, PA-C [Specified Professional Personl] - in one to two weeks
Quinn Lo MD [Family Provider] - in less than 1 week
Additional Discharge Medication Instructions: hold baby aspirin while on full dose aspirin.
Prescriptions:
New
oxycodone 5 mg Tablet
5 mg PO Q4HPRN PRN (Reason: Mild pain) Qty: 20 0RF
aspirin 325 mg Tablet
325 mg PO DAILY 28 Days Qty: 28 0RF
Continued
gabapentin 400 mg capsule
400 mg PO QID
hydrocodone-acetaminophen 10-325 mg tablet
1 tab PO Q4H
Patient Comments:
10/23/24: filled 10/12/24 for 150 tabs over 30 days
duloxetine 60 mg capsule,delayed release(DR/EC)
60 mg PO BID
metformin 500 MG tablet extended release 24 hr
500 mg PO BID
bumetanide 1 mg Tablet
1 mg PO BID
Ozempic 1 mg/dose (4 mg/3 mL) Pen Injector
1 mg SC TU
alprazolam 0.5 MG tablet
0.5 mg PO Q6HPRN PRN (Reason: anxiety)
Patient Comments:
10/23/24: filled 10/13/24 for 120 tabs over 30 days
morphine 15 mg tablet extended release
15 mg PO [id number] PRN (Reason: severe pain)
Patient Comments:
10/23/24: last filled 09/24/24 for 60 tabs over 30 days
Held
aspirin 81 mg Tablet,Delayed Release (Dr/Ec)
81 mg PO DAILY Qty: 60 0RF
Hold Instructions: Resume on 11/24/24. hold while on full dose aspirin
Discharge Orders:
Discharge Patient (As Directed); Ordered 10/27/24
Ordered By: Maylin Abad
Discharge Date and Time
Discharge Date/Time: 10/27/24 13:10
Print Language: MOHAWK
== END 2024-10-27 13:10 | disposition home health service (06) | DRG 493 ==
LOC: 2 SOUTH 18:23
PROVIDERS: Internal Medicine; Physician Assistant Medical; Registered Nurse; Student in an Organized Health Care Education/Training Program; ADMITTING PHYSICIAN Internal Medicine; ATTENDING PHYSICIAN Internal Medicine; CONSULT PHYSICIAN Orthopaedic Surgery Hand Surgery; EMERGENCY PHYSICIAN Emergency Medicine; FAMILY PHYSICIAN Family Medicine
PROC: 0QSG04Z Reposition Right Tibia with Internal Fixation Device, Open Approach (ICD-10-PCS; 2024-10-24)
DX: S82.141A Displaced bicondylar fracture of right tibia, initial encounter for closed fracture (principal); D62 Acute posthemorrhagic anemia; F11.20 Opioid dependence, uncomplicated; S82.831A Other fracture of upper and lower end of right fibula, initial encounter for closed fracture; E11.42 Type 2 diabetes mellitus with diabetic polyneuropathy; J45.20 Mild intermittent asthma, uncomplicated; G89.4 Chronic pain syndrome; F32.9 Major depressive disorder, single episode, unspecified; F41.9 Anxiety disorder, unspecified; E66.09 Other obesity due to excess calories; E78.2 Mixed hyperlipidemia; F17.200 Nicotine dependence, unspecified, uncomplicated; I10 Essential (primary) hypertension; M81.0 Age-related osteoporosis without current pathological fracture; W01.0XXA Fall on same level from slipping, tripping and stumbling without subsequent striking against object, initial encounter; Z79.84 Long term (current) use of oral hypoglycemic drugs; Z79.899 Other long term (current) drug therapy; Z86.73 Personal history of transient ischemic attack (TIA), and cerebral infarction without residual deficits; Z68.25 Body mass index [BMI] 25.0-25.9, adult
CPT/HCPCS: 73590; 73700; 76000; 80048; 80053; 82962; 83036; 85025; 85027; 85610; 85730; 86850; 86900; 86901; 96374; 96375; 96376; 97163; 97167; 97530; 97535; 99285; 99406

== ENCOUNTER 2024-10-30 04:38 | Inpatient (IN) | payer OTHER, SELFPAY ==
[2024-10-29 22:24] VITALS: BMI 26.8
[2024-10-29 22:28] VITALS: BP 119/65
[2024-10-29 22:41] LABS: % Basophils 0.2 % (0-2); % Eosinophils 2.4 % (0-6); % Immature Granulocytes 0.4 % (0-0.5); Absolute Eosinophils 0.2 10^3/uL (0-0.7); Absolute Lymphocytes 0.6 10^3/uL (1.2-3.4); Absolute Neutrophils 6.3 10^3/uL (1.4-6.5); Hematocrit 32.8 % (37.0-47.0); Hemoglobin 10.9 g/dL (12.0-16.0); Mean Corp Hgb Conc. 33.2 g/dL (33.0-37.0); Mean Corpuscular Volume 84.3 fL (81.0-99.0); Mean Platelet Volume 8.6 fL (7.4-10.4); Nucleated Red Blood Cells % 0 %; Platelet Count 279 10^3/uL (130-400); Red Blood Cell Count 3.89 10^6/uL (4.20-5.40); Red Cell Dist. Width 13.6 % (11.5-14.5)
[2024-10-29 22:53] LABS: ALT (SGPT) 15 U/L (0-35); AST (SGOT) 23 U/L (14-36); Albumin 3.6 g/dl (3.5-5.0); Alkaline Phosphatase 82 U/L (38-126); Blood Urea Nitrogen 31 mg/dl (7-17); Calcium 8.9 mg/dl (8.4-10.2); Carbon Dioxide 28 mmol/L (22-30); Chloride 96 mmol/L (98-107); Estimated Creatinine Clearance 62 ml/min; Glucose 145 mg/dl (70-99); Potassium 4.2 mmol/L (3.5-5.1); Sodium 133 mmol/L (135-145); Total Protein 6.6 g/dl (6.3-8.2); eGFR > 60.00
[2024-10-29 23:00] VITALS: BP 132/57
[2024-10-29 23:30] VITALS: BP 124/54
[2024-10-30] VITALS (11 sets, daily range): BP systolic 115–140; BP diastolic 55–65; PULSE 60–81; O2SAT 95–97; BMI 26.9
[2024-10-30 00:05] LABS: Lactic Acid 1.1 mmol/L (0.7-2.0)
[2024-10-30] MEDS: NSS 1000 IV (00:07)
[2024-10-30 00:30] LABS: COVID-19 Antigen Negative (Negative)
[2024-10-30 00:34] LABS: Urine Albumin 2+ (Neg - Trace); Urine Bilirubin Negative (Negative); Urine Character Clear (Clear); Urine Color Yellow; Urine Glucose Negative (Negative); Urine Ketone 1+ (Negative); Urine Leukocyte Negative (Negative); Urine Nitrite Negative (Negative); Urine Occult Blood Negative (Negative); Urine Urobilinogen Negative (Neg - 1+)
[2024-10-30 01:05] LABS: Erythrocyte Sed Rate 78 mm/hour (0-20)
[2024-10-30 01:44] LABS: Urine Amorphous Seen; Urine Squamous Cell 16-20 /LPF (Few)
[2024-10-30 01:46] LABS: Urine Bacteria Moderate (Negative)
--- NOTE | 2024-10-30 02:23 | ED.GENMED ---
History of Present Illness
General
Chief Complaint: Post Operative Problem(s)
Source: patient
Time Seen by Provider: 10/29/24 23:12
History of Present Illness
History of Present Illness:
69-year-old femaleBrought in by EMS for fever. She is postop day 5 from a right tib-fib fracture from a fall last week. Family thinks patient's mental status is altered. Upon arrival, patient complaining of right knee pain. Started on oxygen as
her O2 sats dropped to the low 80s. She is a smoker. States that she was afebrile for the first 4 postop days.
Past History
Past History
ED Past Medical History: Asthma, HTN, NIDDM and Other (Diabetes, chronic pain from degenerative disease in her back, has pain medication at home, hypertension)
ED Past Surgical History: and Gynecological
Social History
Tobacco: Smoker
Alcohol: None
Drug: Marijuana (vape)
Personal:
Living: with roommate
Family History
Family History: Other (Mother with Alzheimer's)
Review of Systems
Review of Systems
Allergies reviewed?: Yes
Other source history: family
All Other Systems: ROS reviewed and negative except as documented in HPI and ROS
Constitutional: Reports fever and fatigue
EENT: Reports no symptoms
Respiratory: Reports no symptoms
Cardiac: Reports no symptoms
ABD/GI: Reports no symptoms
: Reports no symptoms
Musculoskeletal: Reports joint pain
Skin: Reports no symptoms
Neurological: Reports no symptoms
Endocrine: Reports no symptoms
Hematologic/Lymphatic: Reports no symptoms
Psychiatric: Reports no symptoms
Phy Exam
General Physical Exam
General Presentation: moderate distress
General age: appears older than age
General Skin: warm and dry
General Habitus: normal
General Mental: alert
General Hydration: appears well hydrated
ENT Exam
ENT Exam: EOMI, pharynx normal, neck supple and normocephalic
Eye Exam
Eye Exam: PERRL, cornea clear and conjunctiva normal
Cardiovascular Exam
Cardiovascular Exam: regular rate/rhythm and tachycardia
Pulmonary Exam
Pulmonary Exam: generalized wheezing
Oxygen Status: oxygen 2 liters via NC
Cough: coarse cough
Breath Sounds: Wheeze: generalized
Gastrointestinal Exam
Gastrointestinal Exam: normal bowel sounds, non tender, soft, no organomegaly, no pulsatile mass and non distended
Neurological Exam
Neurological Exam: alert and oriented x3
Musculoskeletal Exam
Musculoskeletal Exam: other (Right leg in a knee immobilizer and Chucho wrap)
Skin Exam
Skin Exam: normal color, warm/dry, no rash and no petechia
Psychiatric Exam
Psychiatric Exam: normal mood/affect
Course
Orders/Labs/Results
Orders:
Orders
10/29/24 22:30
EKG [Electrocardiogram (*1)] Urgent
Reason for Study: Tachycardia
CMP [Comprehensive Metabolic Panel] Urgent
Complete Blood Count/With Diff Urgent
Erythrocyte Sed Rate Urgent
Comment: ADDED
10/29/24 22:31
EKG- Treatment ONCE
10/29/24 23:27
Urinalysis Reflex To Culture Urgent
Date Specimen was Collected: 10/29/24
Time Specimen was Collected: 23:27
10/29/24 23:41
COVID-19 Antigen Urgent
Source: Nasal Swab
Lactic Acid Q4H
Comment: CANCEL 2nd LACTIC ACID IF 1st LACTIC ACID IS LESS THAN 2
Procalcitonin Urgent
PCT Algorithmm Indication: Sepsis
Blood Culture Urgent
RYDER Source: Blood/Venous
Specimen Description:
Date Specimen was Collected: 10/29/24
Time Specimen was Collected: 23:25
Influenza A+B Rapid Molecular Urgent
RYDER Source: Nasal Swab
Specimen Description:
10/30/24 00:02
Urine Microscopic Reflex Cult Urgent
Urine Culture Urgent
RYDER Source: U
Specimen Description:
Date Specimen was Collected: 10/29/24
Time Specimen was Collected: 23:27
10/30/24 00:06
0.9% Sodium Chloride 1000 ml [Nss] 1,000 ml IV BOLUS
10/30/24 00:10
CXR2 [CR Chest - 2 Views ] Urgent
Comment: occasional cough
Reason For Exam: sao2 84 on Ra
10/30/24 00:15
CT Head W/o Iv Contrast Urgent
Reason For Exam: altered mental status
10/30/24 02:25
Electrocardiogram (*1) Urgent
Reason for Study: Shortness of Breath
EKG- Treatment ONCE
10/30/24 02:26
CT Chest PE Study Urgent
Comment:
Reason For Exam: Postoperative dyspnea, tachycardia
Abnormal Lab Results
10/29/24 10/30/24
22:30 00:02
RBC 3.89 L 10^6/uL
(4.20-5.40)
Hgb 10.9 L g/dL
(12.0-16.0)
Hct 32.8 L %
(37.0-47.0)
Absolute Lymphs (auto) 0.6 L 10^3/uL
(1.2-3.4)
Absolute Monos (auto) 1.0 H 10^3/uL
(0.1-0.6)
Neutrophils % 78.0 H %
(42.2-75.2)
Lymphocytes % 7.0 L %
(20.5-51.1)
Monocytes % 12.0 H %
(1.7-9.3)
ESR 78 H mm/hour
(0-20)
Sodium 133 L mmol/L
(135-145)
Chloride 96 L mmol/L
(98-107)
BUN 31 H mg/dl
(7-17)
Glucose 145 H mg/dl
(70-99)
Urine Ketones 1+ A
(Negative)
Urine RBC 3-6 A /HPF
(0-2)
Urine Bacteria (Reflex) Moderate A
(Negative)
Urine Albumin (Reflex) 2+ A
(Neg - Trace)
10/29/24 22:30
10/29/24 22:30
Vital Signs
Initial and Last Documented VS:
Initial Vital Signs
Temp
99.5 F
10/29/24 22:21
Last Documented Vital Signs
Temp Pulse Resp BP Pulse Ox
101 F H 90 34 133/61 96
10/29/24 23:10 10/30/24 01:15 10/30/24 01:15 10/30/24 01:11 10/30/24 01:15
*Scientist Propagator Interpretation
Rate: tachycardiac
Heart Rate: 102
Rhythm: sinus
*Critical Care Note
Total Time (30-74mins, 75-104mins- exclusive of procedures): Not Applicable
Update Note
Update Note:
Patient desats to low 80s on room air.
She does have influenza.
Subacute right knee pain
Smoker
Patient to be admitted to the hospitalist service.
ED Attending Note
-
Portions of this chart may have been created with voice recognition software.� Occasional wrong word or��sound alike� substitutions may have occurred due to the inherent limitations of voice recognition software.
Discharge Plan
Departure
Patient Disposition: Admit
Date of Disposition: 10/30/24
Time of Disposition: 02:25
Admit to: Telemetry
Presentation/result/management discussed w/ accepting MD/DO: Hospitalist
Condition: Good
Discharge Problem:
Hypoxia, Influenza A, Post-operative pain
Prescriptions:
No Action
gabapentin 400 mg capsule
400 mg PO QID
hydrocodone-acetaminophen 10-325 mg tablet
1 tab PO Q4H
Patient Comments:
10/23/24: filled 10/12/24 for 150 tabs over 30 days
duloxetine 60 mg capsule,delayed release(DR/EC)
60 mg PO BID
metformin 500 MG tablet extended release 24 hr
500 mg PO BID
bumetanide 1 mg Tablet
1 mg PO BID
Ozempic 1 mg/dose (4 mg/3 mL) Pen Injector
1 mg SC WE
alprazolam 0.5 MG tablet
0.5 mg PO Q6HPRN PRN (Reason: anxiety)
Patient Comments:
10/23/24: filled 10/13/24 for 120 tabs over 30 days
morphine 15 mg tablet extended release
15 mg PO [id number] PRN (Reason: severe pain)
Patient Comments:
10/23/24: last filled 09/24/24 for 60 tabs over 30 days
oxycodone 5 mg Tablet
5 mg PO Q4HPRN PRN (Reason: Mild pain) Qty: 20 0RF
aspirin 325 mg Tablet
325 mg PO DAILY 28 Days Qty: 28 0RF
Referrals:
Quinn Lo MD [Family Provider] -
Interventions
Interventions:
*Risk Screen - Suicide Last Done: 10/29/24 22:22
*General Assessment Last Done: 10/29/24 22:22
*Neglect/Abuse Screening Last Done: 10/29/24 22:22
*ED- Fall Risk Assessment Last Done: 10/29/24 22:22
*ED COVID-19 Vaccine History Last Done: 10/29/24 22:22
ED-Skin Assessment Last Done: 10/29/24 23:05
Discharge Date and Time
Print Language: ARMENIAN
[2024-10-30] MEDS: NORCO 5/325 1 TABLET PO (03:34)
--- NOTE | 2024-10-30 04:27 | HPS.HSE ---
Family Physician
-
Family Physician: Quinn Lo
Chief Complaint
-
Fever, Cough
History of Present Illness
Patient is a 69y F with PMH significant for CVA with aphasia / memory impairment, hypertension, DM-II and recent fall with R tib-fib fracture who presents to ED for evaluation of fever and cough. History obtained from patient and her at
the bedside. Patient was recently admitted 10/23 - 10/27 s/p fall at home. She suffered R tib-fib fracture and underwent R tibia ORIF on 10/24/24. Patient tolerated the procedure well and was discharged to home. She has since developed hacking,
minimally productive cough and noted that she had a fever today to 102. Patient was brought to the ED for further evaluation.
Here she is noted to be influenza A positive.
Medical History
Past Medical History
Past Medical History: Reports Other
Additional Past Medical History:
Essential hypertension
DM2
Diabetic peripheral neuropathy
Mild intermittent asthma
Chronic pain syndrome
Chronic opiate dependence
Mixed hyperlipidemia
Major depression
Anxiety disorder
Osteoporosis
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
Past Surgical History: Reports Other
Additional Past Surgical History:
Right Tibial ORIF (10/24/24)
Right Femur ORIF
T&A
Salpingectomy
Social History
Tobacco: Smoker
Alcohol: None
Drug: Marijuana
Family History
Family History: Not pertinent
Allergies / Home Medications
Allergies reflects when Allergies were last updated in [email or web address].
Home Medications with original date entered in [email or web address]
Allergy/Medication List:
Allergies
Allergy/AdvReac Type Severity Reaction Status Date / Time
No Known Allergies Allergy Verified 03/24/23 08:31
Home Medications
duloxetine 60 mg capsule,delayed release 60 mg PO BID depression/pain 11/12/23
gabapentin 400 mg capsule 400 mg PO QID pain/neuropathy 11/12/23
hydrocodone 10 mg-acetaminophen 325 mg tablet 1 tab PO Q4H moderate pain 11/12/23
metformin 500 mg tablet,extended release 24 hr 500 mg PO BID diabetes 11/12/23
alprazolam 0.5 mg tablet 0.5 mg PO Q6HPRN PRN anxiety 10/23/24
bumetanide 1 mg tablet 1 mg PO BID 10/23/24
morphine 15 mg tablet,extended release 15 mg PO [id number] PRN severe pain 10/23/24
semaglutide 1 mg/dose (4 mg/3 mL) subcutaneous pen injector (Ozempic) 1 mg SC WE 10/23/24
aspirin 325 mg tablet 325 mg PO DAILY 4 weeks #28 tabs 10/27/24
oxycodone 5 mg tablet 5 mg PO Q4HPRN PRN Mild pain #20 tabs 10/27/24
Review of Systems
-
History Source: Patient and Family
A 12 point ROS was completed and negative except as noted: Yes
Constitutional: Reports Fever and Fatigue; Denies Chills
Respiratory: Reports Cough; Denies Trouble Breathing
Cardiac: Denies Chest Pain or Palpitations
Abdomen/GI: Denies Abdominal Pain, Nausea, Vomiting or Diarrhea
: Denies Dysuria or Frequency
Musculoskeletal: Reports Joint Pain; Denies Edema
Neurological: Denies Dizzy or Headache
Physical Exam
Vital Signs
Vital Signs
Temp Pulse Resp BP Pulse Ox
101 F H 90 34 133/61 96
10/29/24 23:10 10/30/24 01:15 10/30/24 01:15 10/30/24 01:11 10/30/24 01:15
Physical Exam
General: Other (69y F in no acute distress.)
HEENT: Moist mucous membranes and PERRLA
Respiratory: Other (Scattered rales. No wheeze. Cough appreciated during exam / interview.)
Cardiac: S1/S2 and Regular Rhythm; No Murmur
GI: Soft, Non Tender, Non Distended and Normal Bowel Sounds
Musculoskeletal: Other (RLE with knee immobilizer in place and JOSE GUADALUPE wrap beneath.)
Neuro: Awake, Alert and Other (Evident memory impairment.)
Laboratory Results
-
10/29/24 22:30
10/29/24 22:30
Laboratory Results
Lactic Acid Cancelled 10/30/24 03:15
Total Bilirubin 1.0 mg/dl (0.2-1.3) 10/29/24 22:30
AST 23 U/L (14-36) 10/29/24 22:30
ALT 15 U/L (0-35) 10/29/24 22:30
Alkaline Phosphatase 82 U/L (38-126) 10/29/24 22:30
Impression/Plan
-
A/P: Patient is a 69y F with PMH significant for CVA, HTN, DM-II and recent R tibia ORIF who presents to ED for evaluation of fever and cough.
Influenza A
Acute Hypoxemic Respiratory Failure
Sepsis secondary to the above
- Admit for further evaluation and treatment.
- Patient presents with fever, tachycardia, tachypnea and positive Influenza A assay.
- Acute hypoxemia secondary to the above with SpO2 into the 80s on room air / requiring supplemental O2.
- Tamiflu BID.
- Supportive care including O2 support, albuterol, etc.
- Follow proper precautions.
- Follow for clinical improvement.
- CTA was done in the ED which shows no evidence of PE. Pos inflammatory changes c/w influenza.
s/p Right Tibia ORIF (10/24/24)
- Stable. Maintain current immobilizer / dressing.
- PT / OT evaluations during stay.
- Continue ASA 325mg daily per post-op Ortho protocol.
- Due for Ortho follow-up 11/03 - 11/07.
ASCVD
CVA with Resultant Aphasia / Confusion
- Some acute increase ion confusion per family - likely secondary to influenza / acute illness.
- Continue current CV med regimen and follow for any focal complaints / findings.
Benign Hypertension
- Stable. Continue usual medications with holding parameters.
DM-II
- Stable. Hold PO metformin acutely.
- Follow glucose and cover with SSI as needed.
Chronic HFpEF
- Stable. Continue usual bumetanide dosing.
- Follow I/Os, daily weights, etc.
Post-Op Blood Loss Anemia
- Improving gradually. Baseline Hgb around 12.
- Currently 10.9 up from 10 at recent discharge.
- Continue to follow.
Chronic Pain Syndrome
Chronic Opioid Dependence
- Stable. No acute complaints of pain today.
- Followed by Dr. Heck as an outpatient.
- Continue usual med regimen without changes.
DVT Prophylaxis: Continue ASA 325mg daily per Ortho post-op protocol.
Code Status: Full
[2024-10-30 06:30] LABS: Hematocrit 28.7 % (37.0-47.0); Hemoglobin 9.6 g/dL (12.0-16.0); Mean Corp Hgb Conc. 33.4 g/dL (33.0-37.0); Mean Corpuscular Hgb 28.2 pg (27.0-31.0); Mean Corpuscular Volume 84.4 fL (81.0-99.0); Mean Platelet Volume 9.1 fL (7.4-10.4); Platelet Count 266 10^3/uL (130-400); Red Cell Dist. Width 13.4 % (11.5-14.5); White Blood Cell Count 6.6 10^3/uL (4.8-10.8)
--- NOTE | 2024-10-30 06:40 | PTCARENOTE ---
Pt arrived to [address] from ED via stretcher. Pt pulled over into bed 333 with staff assistance. Pt oriented to room, call lenz within reach. Care ongoing.
[2024-10-30 06:43] LABS: Blood Urea Nitrogen 26 mg/dl (7-17); Calcium 8.8 mg/dl (8.4-10.2); Carbon Dioxide 25 mmol/L (22-30); Chloride 99 mmol/L (98-107); Estimated Creatinine Clearance 79 ml/min; Glucose 127 mg/dl (70-99); Potassium 3.9 mmol/L (3.5-5.1); Sodium 133 mmol/L (135-145); eGFR > 60.00
--- NOTE | 2024-10-30 08:11 | VNURNOTE ---
Chart reviewed. Patient is current with [facility] nursing, OT. Will continue to follow hospital course and DC plans.
[2024-10-30] MEDS: ASPIRIN 325 MG PO (09:07)
[2024-10-30] MEDS: NEURONTIN 400 MG PO ×4 (09:07→21:27)
[2024-10-30] MEDS: CYMBALTA DELAYED RELEASE 60 MG PO ×2 (09:07→20:28)
[2024-10-30] MEDS: TAMIFLU 75 MG PO ×2 (09:07→20:28)
[2024-10-30] MEDS: BUMEX 1 MG PO ×2 (09:07→20:28)
[2024-10-30] MEDS: NICODERM TRANSDERMAL 14 MG TRANSDERM (09:08)
[2024-10-30 09:15] LABS: Glucose - Point of Care 137 mg/dl (70-99)
--- NOTE | 2024-10-30 10:14 | CM ---
Addendum entered by Kaitlynn Zarco 10/30/24 14:15:
Patient daughter Kaylee called to ask for VN supports with aides if possible. Physician placed consult for VN and CM sent tt to liaison with [facility] for [facility] care, per liaison patient was current with [facility] and can restart when appropriate. Patient
may need home O2 pending assessment closer to discharge. CM also will continue to follow for discharge planning needs.
Plan; home with [facility]
Original Note:
Patient seen at bedside. Patient stated she was sleepy and her partner, Benitez was up all night so she did not think he would be coming in today. Patient confirmed no changes recently; patient resides in a one story home with partner, no steps to
enter, patient is independent with adl's and ambulation, no dme, patient drives, no home oxygen, with [facility] current. PCP is Dr. Quinn Spence and she uses the [facility]. Patient plan is for discharge home with VN. CM will continue to follow
for discharge planning needs.
Plan; Home with visiting nurses, patient is current with [facility]N for [facility].
[2024-10-30 11:48] LABS: Glucose - Point of Care 134 mg/dl (70-99)
[2024-10-30] MEDS: NORCO 7.5/325 1 TABLET PO ×2 (11:50→19:15)
--- NOTE | 2024-10-30 13:19 | W.PN.HOSP.TC ---
Today's Communication/Plan
-
Continue Tamiflu
Continue bronchodilators
Hold off on steroids/antibiotics
Wean oxygen
Assessment / Plan
Assessment / Plan
#Acute hypoxemic respiratory failure
#Sepsis secondary to possible CAP versus flu
#Influenza A positive
-Presented with SIRS criteria positive; SpO2 in the 80s on RA; flu a positive
-Required 6 L of O2 initially; was started on Tamiflu; no initiation of antibiotic
-Blood and urine cultures were obtained in the ED with NGTD
-Oxygen status has improved and now requiring 2 of oxygen with SpO2 97%
-On exam she does have wheezes, mentions smoking history but no COPD diagnosis
-Will defer against steroid and antibiotic for now and continue to monitor
-Continue Tamiflu twice daily with plan for 5-day course
-Continue with as needed bronchodilators
-SpO2 goal >90%
#Wheezing
-Suspect she has underlying COPD with significant smoking history
-No signs of hypercapnia as of now, will defer against steroid regimen unless worsening
-Should have OP follow-up with acoustical engineer for PFTs and 6-minute walk test
-Will continue with SpO2 goal of 90% for now
#Postoperative blood loss
-Likely related to recent ORIF on 10/24
-Baseline hemoglobin near 12, has been slowly improving since procedure
-Most recent hemoglobins have been near 10
-Continue monitor CBC
-Order iron studies for tomorrow's labs
#S/p right tibial ORIF (10/24/2024)
-Remains in immobilizer and on aspirin 325 mg for DVT prophylaxis
-PT/OT consulted for ongoing therapy while here
-Due for follow-up in office with orthopedics week of 11/03 to 11/07
#Primary hypertension
-No known history of hypertensive systemic disease
-Home regimen does not include any first-line antihypertensive agents
#HFpEF
-Last echocardiogram with LVEF 55% without significant abnormal findings
-Home regimen includes Bumex 1 mg twice daily; no SGLT2 or other GDMT
-Appears euvolemic as of now
#Chronic pain syndrome
#Chronic opioid dependence
-Follows with Dr. Heck as an outpatient
-No complaints of pain as today
-Continued on home regimen here
#NIDDM with neuropathy
-No recent A1c; complicated by neuropathy for which she takes gabapentin and duloxetine
-Home regimen includes Ozempic and metformin twice daily
-Added on ISS here, BG goal 140 - 180
DVT prophylaxis: Full dose aspirin
Diet: Carb controlled
CODE STATUS: Full code
Anticipated Discharge: 24 - 48 hours
Subjective/Interval History
-
Date of Service: October 30, 2024
Seen and examined at the bedside. No acute events reported overnight. AFVSS on 2 L oxygen now
Patient states her breathing is improved, titrated down from 6 L overnight. Continues to have body aches and fatigue related to flu
Denies any new complaints as of this morning
Objective Data
-
Labs:
Laboratory Results
10/30/24
06:05
WBC 6.6
Hgb 9.6 L
Hct 28.7 L
Plt Count 266
Sodium 133 L
Potassium 3.9
Chloride 99
Carbon Dioxide 25
BUN 26 H
Creatinine 0.7
Glucose 127 H
Calcium 8.8
Vital Signs:
Vital Signs
Temp Pulse Resp BP Pulse Ox
97.9 F 71 18 137/64 97
10/30/24 07:05 10/30/24 09:07 10/30/24 07:05 10/30/24 09:07 10/30/24 07:05
Review of Systems
-
History Source: Patient
All other systems: Reviewed and negative
Physical Exam
-
General: Well Developed, Well Nourished and No Apparent Distress
HEENT: Normocephalic, Atraumatic and Moist Mucous Membranes
Respiratory: Wheezes (Trace, end expiratory) and Non Labored Respirations; Negative Rales, Rhonchi or Crackles
Cardiac: Regular Rhythm and S1/S2; Negative Murmur, Rub, JVD or Gallop
GI: Soft, Nontender, Nondistended and Normal Bowel Sounds
Musculoskeletal: No Clubbing, No Cyanosis and No Edema
Skin: Warm, Dry and Normal Turgor; Negative Rash
Neuro: AO x 3 and Nonfocal/Grossly Intact
Psych: Calm
Data Reviewed
-
Labs: Labs Reviewed by me and Discussed with Patient
--- NOTE | 2024-10-30 16:06 | VNURNOTE ---
Rec'ed message from that daughter asking for additional supports at home. Patient is current with VN. Liaision attempted to call patient's daughter Kaylee, no answer. Resumption referral placed in [facility], VASCULAR TECHNICIAN and [employer] added.
[2024-10-30 17:31] LABS: Glucose - Point of Care 53 mg/dl (70-99)
[2024-10-30 18:02] LABS: Glucose - Point of Care 100 mg/dl (70-99)
[2024-10-30 19:47] LABS: Glucose - Point of Care 130 mg/dl (70-99)
[2024-10-30] MEDS: MS CONTIN (EXTENDED RELEASE) 15 MG PO (21:28)
[2024-10-30 22:16] LABS: Glucose - Point of Care 168 mg/dl (70-99)
[2024-10-31 05:09] LABS: Glucose - Point of Care 131 mg/dl (70-99)
[2024-10-31 05:38] VITALS: BMI 27.0
[2024-10-31 07:00] VITALS: BP 137/59
[2024-10-31 07:23] LABS: % Basophils 0.4 % (0-2); % Eosinophils 6.1 % (0-6); % Immature Granulocytes 0.8 % (0-0.5); % Lymphocytes 25.1 % (20.5-51.1); % Monocytes 19.2 % (1.7-9.3); % Neutrophils 48.4 % (42.2-75.2); Absolute Eosinophils 0.3 10^3/uL (0-0.7); Absolute Lymphocytes 1.2 10^3/uL (1.2-3.4); Absolute Monocytes 0.9 10^3/uL (0.1-0.6); Absolute Neutrophils 2.3 10^3/uL (1.4-6.5); Hematocrit 28.7 % (37.0-47.0); Hemoglobin 9.5 g/dL (12.0-16.0); Mean Corp Hgb Conc. 33.1 g/dL (33.0-37.0); Mean Corpuscular Volume 84.7 fL (81.0-99.0); Nucleated Red Blood Cells % 0 %; Platelet Count 282 10^3/uL (130-400); Red Blood Cell Count 3.39 10^6/uL (4.20-5.40); Red Cell Dist. Width 13.6 % (11.5-14.5); White Blood Cell Count 4.8 10^3/uL (4.8-10.8)
[2024-10-31 07:42] LABS: Blood Urea Nitrogen 25 mg/dl (7-17); Calcium 8.8 mg/dl (8.4-10.2); Carbon Dioxide 30 mmol/L (22-30); Chloride 100 mmol/L (98-107); Estimated Creatinine Clearance 69 ml/min; Glucose 96 mg/dl (70-99); Potassium 3.9 mmol/L (3.5-5.1); Sodium 139 mmol/L (135-145); eGFR > 60.00
[2024-10-31] MEDS: ASPIRIN 325 MG PO (08:49)
[2024-10-31] MEDS: BUMEX 1 MG PO (08:49)
[2024-10-31] MEDS: CYMBALTA DELAYED RELEASE 60 MG PO (08:50)
[2024-10-31] MEDS: TAMIFLU 75 MG PO (08:50)
[2024-10-31] MEDS: NEURONTIN 400 MG PO ×2 (08:50→13:06)
[2024-10-31] MEDS: NICODERM TRANSDERMAL 14 MG TRANSDERM (08:50)
[2024-10-31] MEDS: NORCO 7.5/325 1 TABLET PO ×2 (09:00→13:06)
[2024-10-31 09:04] LABS: Glucose - Point of Care 113 mg/dl (70-99)
[2024-10-31 11:53] LABS: Glucose - Point of Care 122 mg/dl (70-99)
--- NOTE | 2024-10-31 11:59 | W.PN.HOSP.TC ---
Today's Communication/Plan
-
Escalate pain meds for 5-day course
Continue Tamiflu to complete 5 days
Follow-up with orthopedist and PCP
Discharge
Assessment / Plan
Assessment / Plan
#Acute hypoxemic respiratory failure
#Sepsis secondary to possible CAP versus flu
#Influenza A positive
-Presented with SIRS criteria positive; SpO2 in the 80s on RA; flu a positive
-Required 6 L of O2 initially; was started on Tamiflu; no initiation of antibiotic
-Blood and urine cultures were obtained in the ED with NGTD
-Oxygen status has improved and now requiring 2 of oxygen with SpO2 97%
-Continue Tamiflu twice daily with plan for 5-day course
-Continue with as needed bronchodilators
-On RA as of morning 10/31, SpO2 goal >90%
#Wheezing
-Suspect she has underlying COPD with significant smoking history
-No signs of hypercapnia as of now, will defer against steroid regimen unless worsening
-Should have OP follow-up with soa architect for PFTs and 6-minute walk test
-Will continue with SpO2 goal of 90% for now
#Postoperative blood loss
-Likely related to recent ORIF on 10/24
-Baseline hemoglobin near 12, has been slowly improving since procedure
-Most recent hemoglobins have been near 10
-Continue monitor CBC
-Order iron studies for tomorrow's labs
#S/p right tibial ORIF (10/24/2024)
-Remains in immobilizer and on aspirin 325 mg for DVT prophylaxis
-PT/OT consulted for ongoing therapy while here
-Due for follow-up in office with orthopedics week of 11/03 to 11/07
#Primary hypertension
-No known history of hypertensive systemic disease
-Home regimen does not include any first-line antihypertensive agents
#HFpEF
-Last echocardiogram with LVEF 55% without significant abnormal findings
-Home regimen includes Bumex 1 mg twice daily; no SGLT2 or other GDMT
-Appears euvolemic as of now
#Chronic pain syndrome
#Chronic opioid dependence
-Follows with Dr. Heck as an outpatient
-No complaints of pain as today
-Continued on home regimen here
#NIDDM with neuropathy
-No recent A1c; complicated by neuropathy for which she takes gabapentin and duloxetine
-Home regimen includes Ozempic and metformin twice daily
-Added on ISS here, BG goal 140 - 180
DVT prophylaxis: Full dose aspirin
Diet: Carb controlled
CODE STATUS: Full code
Anticipated Discharge: Today
Subjective/Interval History
-
Date of Service: October 31, 2024
Seen and examined at the bedside. No acute events reported overnight. AFVSS on room air today
States she still has some myalgia and fatigue though improved, otherwise feels much better. Denies chest pain, dyspnea, fevers or chills, GI symptoms
Request increase in pain meds at [place], has had 8/10 pain related to her ankle fracture since previous discharge
Objective Data
-
Labs:
Laboratory Results
10/31/24
06:11
WBC 4.8
Hgb 9.5 L
Hct 28.7 L
Plt Count 282
Sodium 139
Potassium 3.9
Chloride 100
Carbon Dioxide 30
BUN 25 H
Creatinine 0.8
Glucose 96
Calcium 8.8
Vital Signs:
Vital Signs
Temp Pulse Resp BP Pulse Ox
98.2 F 74 18 137/59 97
10/31/24 07:00 10/31/24 08:49 10/31/24 07:00 10/31/24 08:49 10/31/24 07:00
I&O
10/30/24 10/31/24 11/01/24
06:59 06:59 07:59
Intake Total 1500 / 1500
Balance 1500 / 1500
Review of Systems
-
History Source: Patient
All other systems: Reviewed and negative
Physical Exam
-
General: Well Developed, Well Nourished and No Apparent Distress
HEENT: Normocephalic, Atraumatic and Moist Mucous Membranes
Respiratory: Clear to Auscultation and Non Labored Respirations
Cardiac: Regular Rhythm and S1/S2; Negative Murmur, Rub or Gallop
GI: Soft, Nontender, Nondistended and Normal Bowel Sounds
Musculoskeletal: No Clubbing, No Cyanosis, No Edema and Other (Right ankle immobilizer/brace in place)
Skin: Warm and Dry; Negative Rash
Neuro: AO x 3 and Nonfocal/Grossly Intact
Psych: Calm
Data Reviewed
-
Labs: Labs Reviewed by me
--- NOTE | 2024-10-31 16:36 | W.DCSUMMARY ---
Discharge Summary
Discharge Data
Date of Admission: 10/30/24
Date of Discharge: 10/31/24
Total time spent discharging patient (in min): 37
-
Pending Results: No
Hospital Course
69-year-old female with T2DM C/B neuropathy, HFpEF, mild intermittent asthma, HTN, HLD, chronic pain on opiate therapy, medical marijuana, history of CVA, recent ORIF of the right ankle aspirin DVT prophylaxis that presented to the hospital with
shortness of breath and hypoxemia. Required up to 4 L of supplemental oxygen. Tested positive for flu and was started on Tamiflu and as needed nebulizers. No signs of underlying bacterial infection during hospital stay. Patient remained afebrile
and without white cell count. Had quick improvement on Tamiflu, was titrated off of supplemental oxygen by day 2 of hospital stay. Other symptoms of viral infection such as fatigue and myalgias improved as well. Discharged patient on Tamiflu to
complete 5-day course. Recommend follow-up with PCP
During hospitalization she did have wheezing noted on exam, does have extensive smoking history as well. No signs of hypercapnia, suspicion for COPD exacerbation fairly low as symptoms did not improve without systemic steroids. With her smoking
history and wheezes on exam she should have follow-up with ocean clam boat captain for PFTs. Differentials include underlying COPD versus reactive airway disease provoked by underlying viral infection. Discharged home with as needed albuterol sulfate MDI
for shortness of breath or wheezing.
In context of recent right ankle ORIF she did complain of ongoing severe pain since being discharged after procedure. Complained of 8/10 pain fairly consistently despite long-acting morphine as needed for severe pain, Vicodin as needed for moderate
pain and oxycodone 5 mg as needed for mild pain. Discontinued oxycodone. Added on short acting morphine sulfate 15 mg as needed for severe breakthrough pain. Recommended that the patient follow-up with her PCP, orthopedist, pain management
specialist for further titration of her analgesic regimen.
Discharge Plan
-
Patient Disposition: Home (Routine Discharge)
Discharge Diagnosis/Procedures: Acute hypoxemic respiratory failure
Influenza A
Recent ORIF of RLE, right ankle
Wheezing/former smoker
Condition: Good
Diet: No restrictions
Activity: As tolerated
Driving Restrictions: No driving for 24 hours
Bathing Restrictions: OK to Shower
Blood Work: BMP and CBC in 1 to 2 weeks with your family doctor
Others Tests: Pulmonary function test and 6-minute walk test with pulmonology referral
Other Services: PT
Activity Restrictions/Additional Instructions:
After discharge from the hospital you should schedule a follow-up appointment with your family doctor. Should be seen in office within 1 to 2 weeks of discharge
Schedule follow-up appointment with your orthopedist
If you need a refill of pain medications then contact your orthopedist or family doctor
Instructions: Flu in adults - Discharge instructions
Referrals:
Quinn Lo MD [Family Provider] -
Herson Scott MD [Active] - in two to three weeks
Additional Discharge Medication Instructions: Continue Tamiflu (oseltamivir) 75 mg every 12 hours through the end of 11/03/2024 (7 more doses)
Start albuterol sulfate 2 puffs as needed for shortness of breath or wheezing
Start nicotine patches daily for smoking cessation, speak to your PCP about Chantix
Continue aspirin 325 mg daily as previously directed by your orthopedist
New NEEDED pain regimen:
-Mild pain: Tylenol 975 mg
-Moderate pain: Hydrocodone�acetaminophen 10�325 mg
-Severe pain: Long-acting morphine 15 mg
-Breakthrough pain despite long-acting morphine: Short acting morphine 15 mg
Do not use pain medications more frequently than prescription states. If you become drowsy then do not take opiates
Prescriptions:
New
nicotine 14 mg/24 hr Patch 24 Hour
14 mg transdermal DAILY 30 Days Qty: 28 0RF
albuterol sulfate 90 mcg/actuation Hfa Aerosol Inhaler
2 puff inhalation R Q4HPRN PRN (Reason: Shortness of breath/wheeze) Qty: 8.5 0RF
oseltamivir 75 mg Capsule
75 mg PO BID Qty: 7 0RF
morphine 15 mg tablet
15 mg PO Q8H PRN (Reason: Severe pain) 5 Days Qty: 14 0RF
Continued
gabapentin 400 mg capsule
400 mg PO QID
hydrocodone-acetaminophen 10-325 mg tablet
1 tab PO Q4H
Patient Comments:
10/23/24: filled 10/12/24 for 150 tabs over 30 days
duloxetine 60 mg capsule,delayed release(DR/EC)
60 mg PO BID
metformin 500 MG tablet extended release 24 hr
500 mg PO BID
bumetanide 1 mg Tablet
1 mg PO BID
Ozempic 1 mg/dose (4 mg/3 mL) Pen Injector
1 mg SC WE
alprazolam 0.5 MG tablet
0.5 mg PO Q6HPRN PRN (Reason: anxiety)
Patient Comments:
10/23/24: filled 10/13/24 for 120 tabs over 30 days
morphine 15 mg tablet extended release
15 mg PO [id number] PRN (Reason: severe pain)
Patient Comments:
10/23/24: last filled 09/24/24 for 60 tabs over 30 days
aspirin 325 mg Tablet
325 mg PO DAILY 28 Days Qty: 28 0RF
Discontinued
oxycodone 5 mg Tablet
5 mg PO Q4HPRN PRN (Reason: Mild pain) Qty: 20 0RF
Discharge Orders:
Discharge Patient (As Directed); Ordered 10/31/24
Ordered By: Kevin Poon
Discharge Date and Time
Discharge Date/Time: 10/31/24 13:52
Print Language: BENGALI
[2024-11-02 19:01] LABS: Hepatitis C Antibody Negative (Negative)
== END 2024-10-31 13:52 | disposition home health service (06) | DRG 871 ==
LOC: 3 WEST ACU 04:38
PROVIDERS: Emergency Medicine; ADMITTING PHYSICIAN Hospitalist; ATTENDING PHYSICIAN Internal Medicine; EMERGENCY PHYSICIAN Student in an Organized Health Care Education/Training Program; FAMILY PHYSICIAN Family Medicine
DX: A41.89 Other specified sepsis (principal); J10.00 Influenza due to other identified influenza virus with unspecified type of pneumonia; J96.01 Acute respiratory failure with hypoxia; I50.32 Chronic diastolic (congestive) heart failure; F11.20 Opioid dependence, uncomplicated; S82.201A Unspecified fracture of shaft of right tibia, initial encounter for closed fracture; D62 Acute posthemorrhagic anemia; J44.0 Chronic obstructive pulmonary disease with (acute) lower respiratory infection; J45.20 Mild intermittent asthma, uncomplicated; E11.42 Type 2 diabetes mellitus with diabetic polyneuropathy; E78.2 Mixed hyperlipidemia; G89.4 Chronic pain syndrome; I11.0 Hypertensive heart disease with heart failure; I25.10 Atherosclerotic heart disease of native coronary artery without angina pectoris; F32.9 Major depressive disorder, single episode, unspecified; F41.9 Anxiety disorder, unspecified; M81.0 Age-related osteoporosis without current pathological fracture; S82.401A Unspecified fracture of shaft of right fibula, initial encounter for closed fracture; I69.320 Aphasia following cerebral infarction; Z79.899 Other long term (current) drug therapy; Z79.84 Long term (current) use of oral hypoglycemic drugs; Z79.85 Long-term (current) use of injectable non-insulin antidiabetic drugs; Z98.890 Other specified postprocedural states; Z20.822 Contact with and (suspected) exposure to COVID-19
CPT/HCPCS: 70450; 71046; 71275; 80048; 80053; 81003; 81015; 82962; 83605; 84145; 85025; 85027; 85652; 86803; 87040; 87070; 87086; 87502; 87811; 87880; 93005; 96360; 97162; 97166; 99285; Q9967

== ENCOUNTER → 2025-01-04 14:30 | Outpatient (REF) | payer OTHER, SELFPAY | LOC: HWRAD 14:30 | PROVIDERS: ATTENDING PHYSICIAN Family Medicine | DX: E04.1 Nontoxic single thyroid nodule (principal) | CPT/HCPCS: 76536 ==

== ENCOUNTER → 2025-01-07 12:40 | Outpatient (REF) | payer OTHER, SELFPAY | LOC: WOUND 12:40 | PROVIDERS: ATTENDING PHYSICIAN Surgery; FAMILY PHYSICIAN Family Medicine | DX: T81.31XA Disruption of external operation (surgical) wound, not elsewhere classified, initial encounter (principal); L97.212 Non-pressure chronic ulcer of right calf with fat layer exposed; E11.9 Type 2 diabetes mellitus without complications; Z72.0 Tobacco use; Z86.73 Personal history of transient ischemic attack (TIA), and cerebral infarction without residual deficits; F12.90 Cannabis use, unspecified, uncomplicated; Y83.8 Other surgical procedures as the cause of abnormal reaction of the patient, or of later complication, without mention of misadventure at the time of the procedure | CPT/HCPCS: 97597; 99203; 99406 ==

== ENCOUNTER → 2025-01-14 14:11 | Outpatient (REF) | payer OTHER, SELFPAY | LOC: WOUND 14:11 | PROVIDERS: ATTENDING PHYSICIAN Surgery; FAMILY PHYSICIAN Family Medicine | DX: T81.31XA Disruption of external operation (surgical) wound, not elsewhere classified, initial encounter (principal); Y83.8 Other surgical procedures as the cause of abnormal reaction of the patient, or of later complication, without mention of misadventure at the time of the procedure; L97.212 Non-pressure chronic ulcer of right calf with fat layer exposed; E11.9 Type 2 diabetes mellitus without complications; F12.90 Cannabis use, unspecified, uncomplicated; Z86.73 Personal history of transient ischemic attack (TIA), and cerebral infarction without residual deficits; Z72.0 Tobacco use | CPT/HCPCS: 11042 ==

== ENCOUNTER → 2025-02-01 09:54 | Outpatient (REF) | payer OTHER, SELFPAY | LOC: RAD 09:54 | PROVIDERS: ATTENDING PHYSICIAN Family Medicine | DX: Z78.0 Asymptomatic menopausal state (principal) | CPT/HCPCS: 77080 ==

== ENCOUNTER → 2025-02-08 11:13 | Outpatient (REF) | payer OTHER, SELFPAY | LOC: WOUND 11:13 | PROVIDERS: ATTENDING PHYSICIAN Surgery; FAMILY PHYSICIAN Family Medicine | DX: T81.31XA Disruption of external operation (surgical) wound, not elsewhere classified, initial encounter (principal); L97.212 Non-pressure chronic ulcer of right calf with fat layer exposed; E11.9 Type 2 diabetes mellitus without complications; Z72.0 Tobacco use; Z86.73 Personal history of transient ischemic attack (TIA), and cerebral infarction without residual deficits; F12.90 Cannabis use, unspecified, uncomplicated; Y83.8 Other surgical procedures as the cause of abnormal reaction of the patient, or of later complication, without mention of misadventure at the time of the procedure | CPT/HCPCS: 99212 ==